=== PATIENT | male | born 1960 | race Hispanic/Latino ===

== ENCOUNTER 2017-05-28 21:09 | Inpatient (IN) | payer SELFPAY ==
--- NOTE | 2017-05-28 22:13 | RAD ---
PA AND LATERAL CHEST: 05/28/17 HISTORY: Cough and congestion. Heart size is enlarged. There is increased parenchymal lung markings as compared to a 08/01/15 study. M ore in the perihilar distribution, but asymmetric and more confluent in the left mid lung field. Alt nikolai these changes could be indication of edema, they are more suggestive of pneumonic type changes. IMPRESSION: Cardiomegaly with bilateral pneumonia. POS: [facility]
[2017-05-28 22:51] LABS: #Monocytes 0.5 thou/uL (0.11-0.59); #Neutrophils 9.7 thou/uL (1.40-6.50); %Basophils 0.3 % (0.0-1.0); %Lymphocytes 9.2 % (21.0-51.0); %Neutrophils 86.4 % (42.0-75.0); Hemoglobin 16.8 g/dL (14.0-18.0); Mean Corpuscular HGB CONC 33.6 g/dL (32.0-36.0); Mean Corpuscular Hemoglobin 30.8 pg (27.0-31.0); Mean Corpuscular Volume 91.7 fl (80.0-94.0); Mean Platelet Volume 8.8 fL (7.4-10.4); Platelet Count 164 thou/uL (130-400); RBC Distribution Width 10.5 % (11.5-14.5); Red Blood Cell (RBC) Count 5.45 mill/uL (4.70-6.10); White Blood Cell (WBC) Count 11.3 thou/uL (4.8-10.8)
[2017-05-28 23:06] LABS: ALT (SGPT) 60 U/L (8-55); AST (SGOT) 111 U/L (5-34); Albumin 3.5 g/dL (3.5-5.0); Alkaline Phosphatase 73 U/L (40-150); Anion Gap 17 mmol/L (10-20); BUN (Urea Nitrogen) 21 mg/dL (8.4-25.7); Bilirubin, Total 0.7 mg/dL (0.2-1.2); Calc. Creatinine Clearance 0 mL/min (70-130); Carbon Dioxide 21 mmol/L (22-29); Chloride 100 mmol/L (98-107); Estimated GFR-MDRD 71; Globulin 4.5 g/dL (2.4-3.5); Glucose 203 mg/dL (70-105); Potassium 3.9 mmol/L (3.5-5.1); Sodium 134 mmol/L (136-145)
[2017-05-28 23:08] LABS: CKMB 2.9 ng/mL (0-6.6); Troponin I 0.021 ng/mL (< 0.028)
[2017-05-28] MEDS ORDERED: cefTRIAXone\\ROCEPHIN 1 GM VIAL ONE (23:18)
[2017-05-28] MEDS ORDERED: Sodium Chloride 0.9% 0 ML ONE (23:34)
[2017-05-28] MEDS ORDERED: Azithromycin 500 MG VIAL ONE (23:34)
[2017-05-29] MEDS ORDERED: Acetaminophen 325 MG TAB PO PRN (01:14)
[2017-05-29] MEDS ORDERED: Ondansetron ODT 4 MG TAB SL PRN (01:14)
[2017-05-29] MEDS ORDERED: Ondansetron HCl/PF 4 MG/2 ML Vial IVP PRN (01:14)
[2017-05-29] MEDS ORDERED: FLU VACC QS2017-18 36 mo. & older 0.5 ML SYRINGE IM ONE (09:00)
[2017-05-29] MEDS ORDERED: Dextrose 5% in Water 1,000 ML IV PRN (10:41)
[2017-05-29] MEDS ORDERED: Dextrose 50% Abboject 50 ML SYRINGE SLOW IVP PRN (10:41)
[2017-05-29] MEDS ORDERED: CCU Electrolyte Replacement 1 EACH FS ONE (10:41)
[2017-05-29] MEDS ORDERED: Norepinephrine 8 MG/0.9% NS 250 ML IVPB PRN (10:41)
[2017-05-29 11:16] LABS: Actual Bicarbonate (HCO3a) 23.6 mEq/L (22-26); CO2 Tension 32.6 mmHg (35.0-45.0); Calcium, Ionized 1.1 mmol/L (1.12-1.30); Hematocrit-ABG 52.1 % (42.0-52.0); Hemoglobin (Hb) 17.1 g/dL (14.0-18.0); O2 Tension (PaO2) 62.1 mmHg (80.0-100.0); pH, Arterial 7.48 (7.35-7.45)
[2017-05-29 11:19] LABS: Analyzer IN Cardio OR; Puncture Site RRA
[2017-05-29] MEDS: Sodium Chloride 0.9% 1,000 ML IV SCH ×2 (11:40→17:36)
[2017-05-29] MEDS: Acetaminophen 325 MG TAB PO PRN (12:10)
[2017-05-29] MEDS ORDERED: Potassium Phosphate 9 MMOL in Sodium Chloride 0.9% 100 ML IVPB PRN (12:17)
[2017-05-29] MEDS ORDERED: Potassium Chloride 40 MEQ in Sodium Chloride 0.9% 250 ML 250 ML IVPB PRN (12:17)
[2017-05-29] MEDS ORDERED: Potassium Chloride 40 MEQ in Premix Bag 1 BAG IVPB PRN (12:17)
[2017-05-29] MEDS ORDERED: CCU ELECTROLYTE REPLACEMENT PROTOCOL FS PRN (12:17)
[2017-05-29] MEDS ORDERED: Magnesium 2 GM/NS 0.9% 100 ML 2 GM in Premix Bag 1 BAG IVPB PRN (12:17)
[2017-05-29] MEDS ORDERED: Potassium Phosphate 12 MMOL in Sodium Chloride 0.9% 250 ML 250 ML IV PRN (12:17)
[2017-05-29] MEDS ORDERED: Magnesium Oxide 400 MG TAB PO PRN ×2 (12:17)
[2017-05-29] MEDS ORDERED: Potassium Phosphate 15 MMOL in Sodium Chloride 0.9% 250 ML 250 ML IV PRN (12:17)
[2017-05-29] MEDS ORDERED: Potassium Chloride 20 MEQ TAB PO PRN (12:17)
[2017-05-29] MEDS ORDERED: VANCOMYCIN IVPB PRN (12:20)
[2017-05-29 12:31] LABS: Acetaminophen Less than 6.0 mcg/mL (10.0-30.0); Alcohol Less than 10 mg/dL (Less than 10); Salicylate Less than 8.0 mg/dL (15.0-30.0)
--- NOTE | 2017-05-29 13:49 | HP ---
REASON FOR ADMISSION: Pneumonia, sepsis, alcohol abuse. HISTORY OF PRESENTING ILLNESS: The patient gives history of cough with expectoration from the last 2 days. He has been coughing yellowish green sputum. His and other family members have had flu- like symptoms per patient. He did not have any fever at home. Patient has not taken his flu shot. He states he drinks nearly 24 cans of beer on the weekends, but not during weekdays. 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 No complaints of chest pain or palpitations. He has been having hacking cough here in bed 233 on the observation unit. Patient's systolic blood pressures have been in the 80s-90s here. He has r eceived ceftriaxone and Zithromax and one dose of nebulization in the ER. PAST MEDICAL HISTORY AND PAST SURGICAL HISTORY: The patient claims he does not have any medical prob lems. He does not take any medications. ALLERGIES: He is allergic to PENICILLIN. PERSONAL HISTORY: Drinks heavy on the weekends, including 24 beers and states it is only on weekends . Does not abuse drugs or smoke. 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 He stays with his . FAMILY HISTORY: Mom in her 40s. She had a neck mass and it is unclear the exact cause for her . Father is living and is healthy. REVIEW OF SYSTEMS: The following complete review of systems was negative, unless otherwise mentioned in the HPI or below: Constitutional: Weight loss or gain, ability to conduct usual activities. Skin: Rash, itching. Eyes: Double vision, pain. ENT/Mouth: Nose bleeding, neck stiffness, pain, tenderness. Cardiovascular: Palpitations, dyspnea on exertion, orthopnea. Respiratory: Shortness of breath, wheezing, cough, hemoptysis, fever or night sweats. Gastrointestinal: Poor appetite, abdominal pain, heartburn, nausea, vomiting, constipation, or diarr hea. Genitourinary: Urgency, frequency, dysuria, nocturia. Musculoskeletal: Pain, swelling. Neurologic/Psychiatric: Anxiety, depression. Allergy/Immunologic: Skin rash, bleeding tendency. PHYSICAL EXAMINATION: GENERAL: The patient is a 56-year-old male who is currently in moderate respiratory distress. VITAL SIGNS: Blood pressure 86/54 this morning, pulse 78 per minute, respiratory rate 24 per minute, temperature 98.3 degrees Fahrenheit, and saturating 92% on 4 liters nasal cannula. NECK: Supple, no elevated JVD. EYES: Extraocular muscles intact. Pupils reacting to light. ORAL CAVITY: Mucous membranes are dry. There is congestion in the posterior pharynx. No obvious ex udates seen. CARDIOVASCULAR SYSTEM: S1, S2 heard. Regular rhythm. RESPIRATORY SYSTEM: Air entry 1+ bilateral. Scattered rales plus bilateral. Rhonchi plus bilateral . ABDOMEN: Soft, bowel sounds heard. No tenderness, rigidity or guarding. EXTREMITIES: No peripheral edema or calf tenderness. VASCULAR SYSTEM: Peripheral pulses 1+ bilateral. No ischemic ulcerations or gangrene. CENTRAL NERVOUS SYSTEM: No gross focal deficits seen. Patient is alert and oriented well. PSYCHIATRIC SYSTEM: The patient's mood is a bit anxious, otherwise no hallucinations or delusions. LABORATORY DATA AND X-RAY FINDINGS: White count of 11, hemoglobin and hematocrit 16 and 50, platelet count 164 with 86% neutrophils. Sodium 134, serum bicarbonate 21, BUN 21, creatinine 1.0, glucose i s 203, AST 111, ALT 60. BNP is less than 10, albumin is 3.5. Initial nasal swab for influenza A and B antigens are negative. Preliminary blood cultures x2 are negative. Chest x-ray done shows bilate ral pneumonia with cardiomegaly. CLINICAL IMPRESSION AND PLAN: The patient will be admitted to ICU for sepsis with pneumonia. His sy stolic blood pressure has been trending in the 80s-90s. He will be placed on cefepime, Levaquin, and vancomycin. He will be on normal saline at 150 mL per hour. DuoNebs along with Mucinex and Tessalo n for supportive care. We will obtain cortisol level stat and viral PCR as well in view of him being exposed to flu in the family. Patient has a history of binge drinking on the weekends. If patient does not respond to fluid resuscitation, he will be placed on pressors. We will closely watch him fo r withdrawal symptoms from alcohol. I have spoken to Dr. Michaels for pulmonary consultation.
[2017-05-29] MEDS ORDERED: Vancomycin HCl 1 GM in Sodium Chloride 0.9% 250 ML 250 ML IVPB SCH (14:00)
[2017-05-29] MEDS: Cefepime 2 GM, Syringe 2.5 ML in Sterile Water 10 ML SLOW IVP SCH (14:04)
[2017-05-29] MEDS: Benzonatate 100 MG CAP PO SCH ×2 (14:06→21:02)
[2017-05-29] MEDS: HumaLOG 300 UNITS/3 ML VIAL SC PRN (14:35)
--- NOTE | 2017-05-29 16:15 | CON ---
DATE OF CONSULTATION: 05/29/2017 CONSULTING PHYSICIAN: Shirley Gonzalez M.D. REASON FOR CONSULTATION: Pneumonia and low blood pressure. HISTORY OF PRESENT ILLNESS: The patient is a 56-year-old male who was brought to the hospital last n ight with cough, congestion, and flu-like symptoms. Apparently this has been going on for several da ys. He has not been on any antibiotics as outpatient. He says he feels better since receiving some fluids and some antibiotics today. PAST MEDICAL HISTORY: Unremarkable. PAST SURGICAL HISTORY: None. ALLERGIES: PENICILLIN. SOCIAL HISTORY: He drinks 24 beers per weekend, does not smoke. 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 FAMILY MEDICAL HISTORY: Remarkable for some type of cancer. REVIEW OF SYSTEMS: Twelve point review of systems otherwise negative. PHYSICAL EXAMINATION: VITAL SIGNS: Temperature 98.2, pulse 89, O2 sat 100% on room air, respiratory rate mid 20s, blood pr essure 109/68. GENERAL: He is awake and alert, in no distress. HEENT: Unremarkable. NECK: No JVD. CHEST: He has some inspiratory crackles at the bases. CARDIAC: S1, S2 regular. ABDOMEN: Soft, obese, nontender. EXTREMITIES: No clubbing, cyanosis, or edema. LABORATORY DATA: White blood cell count 11.3, hematocrit 50, platelet count 164. Sodium 134, potass ium 3.9, chloride 101, CO2 of 21, BUN 21, creatinine 1.0, glucose 203. Blood gas pH 7.48, pCO2 of 32 , PO2 of 62. Tox screen was negative. His chest x-ray shows bilateral interstitial infiltrates. I reviewed the film personally. Micro rafy t showed no growth to date at this time. ASSESSMENT: Bilateral pneumonia, I think community acquired. PLAN: Reviewed orders, agree with antibiotics. He does not need vasopressors. Continue with IV flu ids. Continue IV steroids. He will not need BiPAP at this time. Things may change in the next 24 h ours and he will be watched closely on telemetry.
[2017-05-29 17:22] LABS: HIV (1/2) Antibody/Antigen Non-Reactive (NonReactive); HIV 1/2 INDEX 0.08 S/CO (<1.00)
[2017-05-29] MEDS: Guaifenesin DM 100-10/5 ML UDCUP PO PRN (18:37)
[2017-05-29] MEDS ORDERED: Cefepime 2 GM in Sodium Chloride 0.9% 100 ML IVPB SCH (21:00)
[2017-05-29] MEDS ORDERED: Famotidine 20 MG TAB PO SCH (21:00)
[2017-05-29] MEDS: guaiFENesin ER 600 MG TAB PO SCH (21:02)
[2017-05-29] MEDS: Famotidine 20 MG TAB PO SCH (21:04)
[2017-05-30 00:18] LABS: Bilirubin Negative (Negative); Blood, Urine Trace (Negative); Clarity CLOUDY (Clear); Glucose, Urine (Dipstick) Negative (Negative); Leukocyte Negative (Negative); Nitrite Negative (Negative); Protein, Urine (Dipstick) 100 mg/dL (Neg-Trace); Specific Gravity, Urine 1.028 (1.002-1.036); Urobilinogen 0.2 mg/dL (0.2-1.0)
[2017-05-30 00:20] LABS: Bacteria/HPF None Seen HPF (None Seen); Pathc Cast-AUWi Flag 1.08 (0-2.49); Squamous Epithelial 0-3 HPF (0-3)
[2017-05-30 00:24] LABS: Amphetamine Not Detected (NotDetected); Barbiturates Screen Not Detected (NotDetected); Benzodiazepine Screen Not Detected (NotDetected); Cocaine Metabolite Screen Not Detected (NotDetected); Medtox Reader # READER 1; Methadone Not Detected (NotDetected); Methamphetamine Not Detected (NotDetected); Opiate Screen Not Detected (NotDetected); Oxycodone Screen Not Detected (NotDetected); Phencyclidine (PCP) Not Detected (NotDetected); THC/Cannabinoid Screen Not Detected (NotDetected); Tricyclic Screen Not Detected (NotDetected)
[2017-05-30 00:25] LABS: Medtox Control Line Valid? VALID (VALID)
[2017-05-30 00:37] LABS: Hyaline Casts/LPF 0-3 HYALINE CAST LPF (0-3 Hyaline); RBC/HPF 0-3 HPF (0-3); Renal Epithelial None Seen HPF (0-3); Transitional Epithelial NONE SEEN HPF (0-3); Yeast-All Forms None Seen HPF (None Seen)
[2017-05-30] MEDS: Cefepime 2 GM, Syringe 2.5 ML in Sterile Water 10 ML SLOW IVP SCH ×2 (01:08→14:07)
[2017-05-30] MEDS: Sodium Chloride 0.9% 1,000 ML IV SCH ×4 (01:08→22:05)
[2017-05-30] MEDS: Vancomycin HCl 1 GM in Premix Bag 1 BAG IVPB SCH ×2 (02:50→14:58)
[2017-05-30 05:36] LABS: Anion Gap 14 mmol/L (10-20); BUN (Urea Nitrogen) 18 mg/dL (8.4-25.7); Calc. Creatinine Clearance 130 mL/min (70-130); Calcium 8.2 mg/dL (7.8-10.44); Carbon Dioxide 22 mmol/L (22-29); Chloride 101 mmol/L (98-107); Estimated GFR-MDRD 81; Glucose 188 mg/dL (70-105); Potassium 3.7 mmol/L (3.5-5.1); Sodium 133 mmol/L (136-145)
[2017-05-30 06:00] LABS: Band 7 % (5-11); Hemoglobin 15.1 g/dL (14.0-18.0); Lymphocytes 9 % (21-51); MDiff Complete? YES; Mean Corpuscular HGB CONC 32.7 g/dL (32.0-36.0); Mean Corpuscular Hemoglobin 31.9 pg (27.0-31.0); Mean Corpuscular Volume 97.6 fl (80.0-94.0); Mean Platelet Volume 9.1 fL (7.4-10.4); Monocytes 8 % (0-10); Neutrophil 71 % (42-75); PLT Morphology Comment Appears Adequate; Platelet Count 167 thou/uL (130-400); RBC Distribution Width 11.9 % (11.5-14.5); RBC Morphology Normal; Reactive Lymphocytes 5 % (0-10); Red Blood Cell (RBC) Count 4.73 mill/uL (4.70-6.10); White Blood Cell (WBC) Count 17.6 thou/uL (4.8-10.8)
[2017-05-30] MEDS ORDERED: Enoxaparin Sodium 40 MG/0.4 ML SYRINGE SC SCH (09:00)
[2017-05-30] MEDS: guaiFENesin ER 600 MG TAB PO SCH ×2 (10:00→22:05)
[2017-05-30] MEDS: Famotidine 20 MG TAB PO SCH ×2 (10:00→22:05)
[2017-05-30] MEDS: Guaifenesin DM 100-10/5 ML UDCUP PO PRN ×2 (10:00→17:54)
[2017-05-30] MEDS: Benzonatate 100 MG CAP PO SCH ×3 (10:05→22:05)
[2017-05-30] MEDS: Enoxaparin Sodium 40 MG/0.4 ML SYRINGE SC SCH (10:06)
--- NOTE | 2017-05-30 11:28 | PDOC.PN ---
- Subjective Encounter Start Date: 05/30/17 Encounter Start Time: 08:30 Subjective: breathing better but still sob and coughing -: no chest pain, is oriented well -: and daughter at bedside - Objective Resuscitation Status: Resuscitation Status FULL:Full Resuscitation MAR Reviewed: Yes Vital Signs & Weight: Vital Signs (12 hours) Temp Pulse Resp BP Pulse Ox 05/30/17 08:13 95 05/30/17 08:10 97.9 F 90 24 H 101/67 86 L 05/30/17 07:23 86 22 H 98 05/30/17 05:20 97.0 F L 89 20 119/77 94 L 05/29/17 23:53 25 H 98 Weight Weight 235 lb 12.8 oz I&O: 05/29/17 05/30/17 05/31/17 06:59 06:59 06:59 Intake Total 240 2730 Output Total 825 Balance 240 1905 Result Diagrams: 05/30/17 05:10 05/30/17 05:10 Additional Labs: Accuchecks 05/30/17 05/29/17 05/29/17 06:20 20:31 11:18 POC Glucose 144 H 156 H 255 H Phys Exam - Physical Examination HEENT: PERRLA, moist MMs Neck: no JVD, supple Respiratory: no rales, wheezing present rhonchi++ Cardiovascular: RRR, no significant murmur Gastrointestinal: soft, non-tender, positive bowel sounds Musculoskeletal: no edema, pulses present Neurological: non-focal, moves all 4 limbs Psychiatric: normal affect, A&O x 3 Dx/Plan (1) PNA (pneumonia) Code(s): J18.9 - PNEUMONIA, UNSPECIFIED ORGANISM Status: Acute Qualifiers: Pneumonia type: due to unspecified organism Laterality: bilateral (2) Sepsis Code(s): A41.9 - SEPSIS, UNSPECIFIED ORGANISM Status: Acute Qualifiers: Sepsis type: sepsis due to unspecified organism Qualified Code(s): A41.9 - Sepsis, unspecified organism (3) Alcohol abuse Code(s): F10.10 - ALCOHOL ABUSE, UNCOMPLICATED Status: Chronic (4) Obesity Code(s): E66.9 - OBESITY, UNSPECIFIED Status: Chronic Qualifiers: Obesity classification: adult class 2 (BMI 35 - 39.9) (5) DM type 2 (diabetes mellitus, type 2) Status: Acute Qualifiers: Diabetes mellitus complication status: with unspecified complications Diabetes mellitus exterminator helper termite insulin use: without exterminator helper termite use Qualified Code( s): E11.8 - Type 2 diabetes mellitus with unspecified complications Comment: new onset - Plan is on cefepime, levaq and vanc, add metformin for dm -: prelim blood cs are -ve, await pcr results -: iv steroids, nebs, reduce iv fluids to 70mls/hr -: spo2 90% room air, sbp around 100 -: keep him on tele for today * . Review of Systems - Medications/Allergies Allergies/Adverse Reactions: Allergies Allergy/AdvReac Type Severity Reaction Status Date / Time No Known Allergies Allergy Verified 05/29/17 01:16 Medications: Current Medications Acetaminophen (Tylenol) 650 mg PO Q4H PRN PRN Reason: Headache/Fever or Pain Last Admin: 05/29/17 12:10 Dose: 650 mg Albuterol/Ipratropium (Duoneb) 3 ml NEB [id number] [facility] Last Admin: 05/30/17 07:23 Dose: 3 ml Benzonatate (Tessalon) 100 mg PO TID [facility] Last Admin: 05/30/17 10:05 Dose: 100 mg Dextrose/Water (Dextrose 50%) 25 gm SLOW IVP PRN PRN PRN Reason: Hypoglycemia Enoxaparin Sodium (Lovenox) 40 mg SC 0900 [facility] Last Admin: 05/30/17 10:01 Dose: 40 mg Enoxaparin Sodium (Lovenox) 40 mg SC 0900 [facility] Last Admin: 05/30/17 10:06 Dose: Not Given Famotidine (Pepcid) 20 mg PO BID [facility] Last Admin: 05/30/17 10:00 Dose: 20 mg Glucagon (Glucagon) 1 mg IM PRN PRN PRN Reason: Hypoglycemia Guaifenesin (Mucinex) 600 mg PO Q12HR [facility] Last Admin: 05/30/17 10:00 Dose: 600 mg Guaifenesin/Dextromethorphan (Robitussin Dm) 15 ml PO Q4H PRN PRN Reason: Cough Last Admin: 05/30/17 10:00 Dose: 15 ml Dextrose/Water (D5w) 1,000 mls @ 0 mls/hr IV .Q0M PRN; As Directed PRN Reason: Hypoglycemia Levofloxacin 750 mg/ Device 150 mls @ 100 mls/hr IVPB 1200 [facility] Last Admin: 05/29/17 12:10 Dose: 150 mls Sodium Chloride (Normal Saline 0.9%) 1,000 mls @ 150 mls/hr IV .Q6H40M [facility] Last Admin: 05/30/17 05:20 Dose: 1,000 mls Cefepime HCl 2 gm/ Syringe 2.5 (ml/ Sterile Water) 12.5 mls @ 150 mls/hr SLOW IVP 0100,1300 [facility] Last Admin: 05/30/17 01:08 Dose: 12.5 mls Potassium Chloride 40 meq/ (Sodium Chloride) 270 mls @ 135 mls/hr IVPB ASDIR PRN PRN Reason: FOR SERUM K+ 2.5 - 3.5 Potassium Chloride 40 meq/ (Device) 100 mls @ 50 mls/hr IVPB ASDIR PRN PRN Reason: FOR SERUM K+ 2.5 - 3.5 Magnesium Sulfate 1 gm/ Sodium (Chloride) 102 mls @ 102 mls/hr IV PRN PRN PRN Reason: MAG LEVEL 1.4 - 2.0 Magnesium Sulfate 2 gm/ Device 100 mls @ 100 mls/hr IVPB ASDIR PRN PRN Reason: MAGNESIUM < 1.4 Potassium Phosphate 9 mmol/ (Sodium Chloride) 103 mls @ 25.75 mls/hr IVPB ASDIR PRN PRN Reason: Phosphate 1.0-1.8 Potassium Phosphate 12 mmol/ (Sodium Chloride) 254 mls @ 63.5 mls/hr IV ASDIR PRN PRN Reason: Serum phosphate 0.5-0.9 Potassium Phosphate 15 mmol/ (Sodium Chloride) 255 mls @ 63.75 mls/hr IV ASDIR PRN PRN Reason: Serum Phos < 0.5 Vancomycin HCl 1 gm/ Device 200 mls @ 200 mls/hr IVPB 0200,1400 [facility] Last Admin: 05/30/17 02:50 Dose: 200 mls Insulin Human Lispro (Humalog) 0 units SC .MODERATE SLIDING SC PRN PRN Reason: Moderate Correctional Scale Last Admin: 05/29/17 14:35 Dose: 6 unit Magnesium Oxide (Magnesium Oxide) 400 mg PO BIDPRN PRN PRN Reason: FOR SERUM MAG 1.4 - 2.0 Magnesium Oxide (Magnesium Oxide) 800 mg PO PRN PRN PRN Reason: FOR SERUM MAG < 1.4 Metformin HCl (Glucophage) 500 mg PO BID-WM LONNIE Methylprednisolone Sodium Succinate (Solu-Medrol) 20 mg IVP Q8HR LONNIE Last Admin: 05/30/17 05:20 Dose: 20 mg Miscellaneous Medication (Phos-Nak) 1 pkt PO TIDPRN PRN PRN Reason: FOR PHOS LEVEL 1.0 - 1.8 Miscellaneous Medication (Phos-Nak) 2 pkt PO TIDPRN PRN PRN Reason: FOR PHOS LEVEL 0.5 - 1.0 Miscellaneous Medication (Pharmacy To Dose) 0 each IVPB DAILYPRN PRN PRN Reason: LABS Ccu Electrolyte (Replacement Protocol) 0 each FS PRN PRN PRN Reason: FOR ELECTROLYTE REPLACEMENT Potassium Chloride (K-Dur) 40 meq PO ASDIR PRN PRN Reason: FOR SERUM K+ 2.5 - 3.5 Potassium Chloride (Klor-Con) 40 meq PER TUBE ASDIR PRN PRN Reason: FOR SERUM K+ 2.5-3.5
--- NOTE | 2017-05-30 13:04 | PRG ---
DATE OF SERVICE: 05/30/2017 SUBJECTIVE: He says he feels okay. He was in no distress. PHYSICAL EXAMINATION: VITAL SIGNS: Temperature 97.9, pulse 90, respiration 24, O2 sat 95% on 3 liters, blood pressure 101/ 67. HEENT: Unremarkable. NECK: No JVD. LUNGS: Diffuse crackles. CARDIAC: S1 and S2 regular. ABDOMEN: Soft. EXTREMITIES: No edema. LABORATORY DATA: White blood cell count 17.6, hematocrit 46.1, platelet count 167. Sodium 133, pota ssium 3.7, chloride 101, CO2 20, BUN 18, creatinine 0.9, glucose 188. Cultures show no growth to tiffani e. ASSESSMENT: 1. Bilateral pneumonia - community acquired. 2. Diabetes mellitus. 3. Alcohol abuse. PLAN: 1. Continue antibiotics. 2. Continue steroids and oxygen. 3. Hopefully transition to oral antibiotics by tomorrow.
[2017-05-30] MEDS: HumaLOG 300 UNITS/3 ML VIAL SC PRN (17:01)
[2017-05-30] MEDS: metFORMIN 500 MG TAB PO SCH (17:20)
[2017-05-30 20:26] LABS: Actual Bicarbonate (HCO3a) 21.8 mEq/L (22-26); Base Excess (BEa) -1.4 mEq/L (0 (+/-) 2.5); CO2 Tension 32.8 mmHg (35.0-45.0); Calcium, Ionized 1.1 mmol/L (1.12-1.30); Hematocrit-ABG 50.5 % (42.0-52.0); Hemoglobin (Hb) 16.2 g/dL (14.0-18.0); pH, Arterial 7.44 (7.35-7.45)
[2017-05-30 20:31] LABS: Analyzer IN Cardio OR; O2 Tension (PaO2) 49.3 mmHg (80.0-100.0); Puncture Site L RADIAL
--- NOTE | 2017-05-30 20:56 | RAD ---
AP VIEW OF THE CHEST 05/30/17 INDICATION: Shortness of breath. COMPARISON: Prior exam dated 05/20/17. FINDINGS: The parenchymal opacities involving the right perihilar region have increased. The left perihilar op acifications appear slightly improved from the comparison. Findings may reflect changes of airway davon ma or pneumonia. No definite pleural effusion or pneumothorax is evident. Cardiomegaly persists. Osse ous structures are unchanged. IMPRESSION: Fluctuating perihilar densities may reflect fluctuating airspace edema. A pneumonia could also have a similar appearance. POS: [facility]
--- NOTE | 2017-05-30 21:33 | PDOC.EVN ---
Event Note - Event Note Event Note: called by RN for spo2 dropping down to 80% on 2 litres nasal canula and 86% on 50% ventimask. ABG, stat cxr. Stop iv fluids. Transfer pt to [facility] for bipap. Continue all other meds.
[2017-05-31] MEDS: Cefepime 2 GM, Syringe 2.5 ML in Sterile Water 10 ML SLOW IVP SCH ×2 (00:50→13:24)
[2017-05-31] MEDS: Vancomycin HCl 1 GM in Premix Bag 1 BAG IVPB SCH (01:30)
[2017-05-31 01:36] LABS: Vancomycin, Trough 6.9 ug/mL
[2017-05-31] MEDS ORDERED: Vancomycin HCl 500 MG in Sodium Chloride 0.9% 100 ML IVPB SCH ×4 (02:45)
[2017-05-31 04:37] LABS: Band 7 % (5-11); Hemoglobin 14.9 g/dL (14.0-18.0); Lymphocytes 10 % (21-51); MDiff Complete? YES; Mean Corpuscular HGB CONC 33.3 g/dL (32.0-36.0); Mean Corpuscular Hemoglobin 32.8 pg (27.0-31.0); Mean Corpuscular Volume 98.4 fl (80.0-94.0); Mean Platelet Volume 9.5 fL (7.4-10.4); Neutrophil 83 % (42-75); PLT Morphology Comment Appears Adequate; Platelet Count 169 thou/uL (130-400); RBC Distribution Width 11.9 % (11.5-14.5); Red Blood Cell (RBC) Count 4.56 mill/uL (4.70-6.10); White Blood Cell (WBC) Count 17.5 thou/uL (4.8-10.8)
[2017-05-31 04:51] LABS: Anion Gap 12 mmol/L (10-20); BUN (Urea Nitrogen) 18 mg/dL (8.4-25.7); Calc. Creatinine Clearance 162 mL/min (70-130); Calcium 8.4 mg/dL (7.8-10.44); Carbon Dioxide 25 mmol/L (22-29); Chloride 105 mmol/L (98-107); Estimated GFR-MDRD Greater than 90; Glucose 202 mg/dL (70-105); Potassium 4.1 mmol/L (3.5-5.1); Sodium 138 mmol/L (136-145)
[2017-05-31] MEDS: HumaLOG 300 UNITS/3 ML VIAL SC PRN (05:38)
--- NOTE | 2017-05-31 09:06 | PDOC.PN ---
- Subjective Encounter Start Date: 05/31/17 Encounter Start Time: 09:04 Mr. Hilario was seen today in follow-up of pneumonia. He says he is breathing a little better with BiPAP. He denies any chest pain. He is still coughing. - Objective Resuscitation Status: Resuscitation Status FULL:Full Resuscitation MAR Reviewed: Yes Vital Signs & Weight: Vital Signs (12 hours) Temp Pulse Resp BP BP Pulse Ox 05/31/17 08:39 68 41 H 99 05/31/17 08:38 68 41 H 99 05/31/17 08:23 98.5 F 56 L 17 114/81 99 05/31/17 07:47 98.3 F 66 30 H 98 05/31/17 04:42 98.3 F 66 22 H 129/83 99 05/31/17 02:45 98.3 F 63 33 H 116/83 100 05/31/17 00:17 81 43 H 100 05/31/17 00:00 98.7 F 76 34 H 114/83 100 05/30/17 22:00 82 37 H 136/95 H 97 05/30/17 21:54 72 100 05/30/17 21:30 99.3 F 88 37 H 99 05/30/17 21:15 99.3 F 88 36 H 146/102 H 99 Weight Weight 235 lb 1 oz I&O: 05/30/17 05/31/17 06/01/17 06:59 06:59 06:59 Intake Total 2730 3605 Output Total 825 2080 Balance 1905 1525 Result Diagrams: 05/31/17 03:48 05/31/17 03:48 Additional Labs: Accuchecks 05/31/17 05/30/17 05/30/17 05:12 21:07 16:41 POC Glucose 193 H 188 H 198 H 05/30/17 11:38 POC Glucose 166 H Phys Exam - Physical Examination HEENT: PERRLA Respiratory: wheezing present + scattered wheezing and rales at both bases Cardiovascular: RRR, no significant murmur Gastrointestinal: soft, non-tender, positive bowel sounds Musculoskeletal: no edema Dx/Plan (1) Pneumonia, community acquired Code(s): J18.9 - PNEUMONIA, UNSPECIFIED ORGANISM Status: Acute (2) Acute respiratory distress Code(s): R06.03 - ACUTE RESPIRATORY DISTRESS Status: Acute (3) DM type 2 (diabetes mellitus, type 2) Status: Chronic Qualifiers: Diabetes mellitus complication status: with unspecified complications Diabetes mellitus senior care insulin use: without emt intermediate use Qualified Code( s): E11.8 - Type 2 diabetes mellitus with unspecified complications Comment: new onset (4) Sepsis Code(s): A41.9 - SEPSIS, UNSPECIFIED ORGANISM Status: Acute Qualifiers: Sepsis type: sepsis due to unspecified organism Qualified Code(s): A41.9 - Sepsis, unspecified organism (5) Alcohol abuse Code(s): F10.10 - ALCOHOL ABUSE, UNCOMPLICATED Status: Chronic - Plan * Acute respiratory distress and sepsis from Pneumonia- Continue Vancomycin and Levaquin * Patient was placed on Bipap last night to aid in Oxygenation * Await further recommendation from Schedule Supervisor * DM- blood glucose is stable. * Echo results noted
[2017-05-31] MEDS: Benzonatate 100 MG CAP PO SCH ×3 (09:29→20:01)
[2017-05-31] MEDS: guaiFENesin ER 600 MG TAB PO SCH ×2 (09:29→20:01)
[2017-05-31] MEDS: Famotidine 20 MG TAB PO SCH ×2 (09:29→20:01)
[2017-05-31] MEDS: Enoxaparin Sodium 40 MG/0.4 ML SYRINGE SC SCH (09:30)
[2017-05-31] MEDS: Vancomycin HCl 1.25 GM in Sodium Chloride 0.9% 250 ML 250 ML IVPB SCH ×2 (09:31→18:38)
[2017-05-31] MEDS: metFORMIN 500 MG TAB PO SCH ×2 (09:31→19:36)
[2017-05-31 09:57] LABS: Actual Bicarbonate (HCO3a) 25.7 mEq/L (22-26); CO2 Tension 41.4 mmHg (35.0-45.0); Calcium, Ionized 1.2 mmol/L (1.12-1.30); Hemoglobin (Hb) 15.7 g/dL (14.0-18.0); pH, Arterial 7.41 (7.35-7.45)
[2017-05-31 09:59] LABS: O2 Tension (PaO2) 49.9 mmHg (80.0-100.0); Puncture Site RRA
[2017-05-31] MEDS ORDERED: Lorazepam 2 MG/ML VIAL SLOW IVP PRN (11:25)
[2017-05-31] MEDS ORDERED: Furosemide 40 MG/4 ML VIAL IVP SCH (11:30)
[2017-05-31] MEDS: Oseltamivir 75 MG CAP PO SCH ×2 (12:14→20:01)
--- NOTE | 2017-05-31 13:35 | PRG ---
DATE OF SERVICE: 05/31/2017 Thirty-five minutes critical care time. SUBJECTIVE: It is unknown to me until this morning the patient had been moved to the last night for respiratory distress. He was placed on BiPAP. He apparently has continued to worsen somewhat th is morning in terms of tachypnea. PHYSICAL EXAMINATION: VITAL SIGNS: His temperature is 98.5, pulse 68, respirations 41, O2 sat 99%, blood pressure 114/81. GENERAL: He appears in no distress other than the tachypnea. HEENT: Pupils reactive. Sclerae are anicteric. Oropharynx clear. NECK: No JVD. LUNGS: A few inspiratory crackles bilaterally. CARDIOVASCULAR: S1, S2 regular. ABDOMEN: Soft and nontender. EXTREMITIES: No edema. LABORATORY DATA: Sodium 138, potassium 4.1, chloride 105, CO2 of 25, BUN 18, creatinine 0.7, glucose 202. White blood cell count 17.5, hematocrit 44.9, platelet count 169. Micro showed influenza A. ASSESSMENT: 1. Influenza A with pneumonitis. 2. Acute respiratory failure. 3. Question of concurrent alcohol withdrawal. PLAN: 1. He needs to be moved over to the ICU where he can be watched more closely. He may require intuba tion. We will continue antibiotics, steroids, and nebulization treatments. 2. Try one dose of Lasix. 3. Repeat chest x-ray tomorrow. 4. Add thiamine scheduled.
[2017-06-01] MEDS: Cefepime 2 GM, Syringe 2.5 ML in Sterile Water 10 ML SLOW IVP SCH ×2 (00:59→12:43)
[2017-06-01 01:27] LABS: Vancomycin, Trough 14.5 ug/mL
[2017-06-01] MEDS: Vancomycin HCl 1.25 GM in Sodium Chloride 0.9% 250 ML 250 ML IVPB SCH ×3 (02:34→18:36)
[2017-06-01 05:37] LABS: Anion Gap 12 mmol/L (10-20); BUN (Urea Nitrogen) 23 mg/dL (8.4-25.7); Calc. Creatinine Clearance 154 mL/min (70-130); Calcium 8.6 mg/dL (7.8-10.44); Carbon Dioxide 27 mmol/L (22-29); Chloride 106 mmol/L (98-107); Estimated GFR-MDRD Greater than 90; Glucose 196 mg/dL (70-105); Potassium 3.9 mmol/L (3.5-5.1); Sodium 141 mmol/L (136-145)
[2017-06-01 05:45] LABS: Band 3 % (5-11); Hemoglobin 15.5 g/dL (14.0-18.0); Lymphocytes 13 % (21-51); MDiff Complete? YES; Mean Corpuscular HGB CONC 32.3 g/dL (32.0-36.0); Mean Corpuscular Hemoglobin 32.1 pg (27.0-31.0); Mean Corpuscular Volume 99.2 fl (80.0-94.0); Mean Platelet Volume 9.3 fL (7.4-10.4); Monocytes 4 % (0-10); Neutrophil 80 % (42-75); PLT Morphology Comment Appears Adequate; Platelet Count 225 thou/uL (130-400); RBC Distribution Width 11.8 % (11.5-14.5); Red Blood Cell (RBC) Count 4.82 mill/uL (4.70-6.10); White Blood Cell (WBC) Count 16.8 thou/uL (4.8-10.8)
[2017-06-01] MEDS: HumaLOG 300 UNITS/3 ML VIAL SC PRN ×2 (06:22→17:29)
[2017-06-01] MEDS: Oseltamivir 75 MG CAP PO SCH ×2 (09:27→20:44)
[2017-06-01] MEDS: metFORMIN 500 MG TAB PO SCH ×2 (09:27→17:30)
[2017-06-01] MEDS: guaiFENesin ER 600 MG TAB PO SCH ×2 (09:27→20:44)
[2017-06-01] MEDS: Benzonatate 100 MG CAP PO SCH ×2 (09:29→14:35)
[2017-06-01] MEDS: Famotidine 20 MG TAB PO SCH ×2 (09:29→20:44)
[2017-06-01] MEDS: Enoxaparin Sodium 40 MG/0.4 ML SYRINGE SC SCH (09:30)
--- NOTE | 2017-06-01 11:10 | PDOC.PN ---
- Subjective Encounter Start Date: 06/01/17 Encounter Start Time: 11:08 Mr. Hilario was seen today in follow-up. He does not have any complaints. He appears more comfortable, with less work of breathing. - Objective Resuscitation Status: Resuscitation Status FULL:Full Resuscitation MAR Reviewed: Yes Vital Signs & Weight: Vital Signs (12 hours) Temp Pulse Resp Pulse Ox 06/01/17 08:49 74 36 H 93 L 06/01/17 08:46 73 35 H 93 L 06/01/17 08:00 98.9 F 06/01/17 04:00 98.6 F 06/01/17 00:08 94 24 H 94 L 06/01/17 00:00 98.3 F Weight Weight 235 lb 1 oz Most Recent Monitor Data Heart Rate from ECG 61 NIBP 108/79 NIBP BP-Mean 84 Respiration from ECG 28 SpO2 98 I&O: 05/31/17 06/01/17 06/02/17 06:59 06:59 06:59 Intake Total 3605 620 370 Output Total 2080 1875 500 Balance 1525 -1255 -130 Result Diagrams: 06/01/17 04:27 06/01/17 04:27 Additional Labs: Accuchecks 05/31/17 05/31/17 05/31/17 20:08 16:27 11:11 POC Glucose 180 H 149 H 153 H Phys Exam - Physical Examination HEENT: PERRLA Respiratory: no wheezing + rales at both bases, and rhonchi throughout Cardiovascular: RRR, no significant murmur, no rub Gastrointestinal: soft, non-tender, positive bowel sounds Musculoskeletal: no edema Dx/Plan (1) Pneumonia, community acquired Code(s): J18.9 - PNEUMONIA, UNSPECIFIED ORGANISM Status: Acute (2) Acute respiratory distress Code(s): R06.03 - ACUTE RESPIRATORY DISTRESS Status: Acute (3) DM type 2 (diabetes mellitus, type 2) Status: Chronic Qualifiers: Diabetes mellitus complication status: with unspecified complications Diabetes mellitus fpc insulin use: without fpc use Qualified Code( s): E11.8 - Type 2 diabetes mellitus with unspecified complications Comment: new onset (4) Sepsis Code(s): A41.9 - SEPSIS, UNSPECIFIED ORGANISM Status: Acute Qualifiers: Sepsis type: sepsis due to unspecified organism Qualified Code(s): A41.9 - Sepsis, unspecified organism (5) Alcohol abuse Code(s): F10.10 - ALCOHOL ABUSE, UNCOMPLICATED Status: Chronic - Plan * Pneumonia- due to Influenza A HI- his PCR came back positive- He has been started on Tamiflu yesterday * He is now in the ICU on Bipap * Continue supportive care * Continue Empiric antibiotics * Continue Dounebs and steroids- further recommendations per Account Manager Employee Benefits * DM- blood glucose is stable.
--- NOTE | 2017-06-01 13:52 | RAD ---
PORTABLE CHEST 1 VIEW: DATE: 06/01/17. TIME: 5:15 a.m. HISTORY: Respiratory distress. FINDINGS: The heart is enlarged. There is pulmonary vascular congestion with patchy airspace opacities, worse on the left. No pneumothoraces or large effusions are seen. There are degenerative changes in the s p8ine. POS: [facility]
[2017-06-01] MEDS ORDERED: Furosemide 20 MG/2 ML VIAL SLOW IVP SCH (16:45)
--- NOTE | 2017-06-01 16:54 | PRG ---
DATE OF SERVICE: 06/01/2017 SERVICE: Pulmonary Medicine. INTERVAL HISTORY: The patient is doing really well from a respiratory standpoint. His breathing is much improved through the day. Overnight, refused the BiPAP and this morning, he was in horrendous distress. He got placed back on the BiPAP and did well through the day. He denies any current shortness of breath or chest discomfort. He has no pain in his chest. He is breathing comfortably so long as he keeps the BiPAP on is what he is suggesting. Otherwise, there has been no interval change to his condition. PHYSICAL EXAMINATION: VITAL SIGNS: Afebrile, pulse 83, blood pressure 120/88, respirations 27, saturation 95% on 40% FiO2. GENERAL: The patient is awake and alert. No apparent distress. LUNGS: There is excellent air entry. There is a prolonged expiratory phase. I hear both wheezing and crackles. Crackles are more predominant on the left. HEART: Normal rate and regular. ABDOMEN: Soft, nontender, nondistended. Bowel sounds are positive. MUSCULOSKELETAL: No cyanosis or clubbing. There is trace to 1+ pitting in the bilateral lower extremities. GENITOURINARY: No Enciso catheter in place. NEUROLOGIC: Grossly nonfocal. LABORATORY DATA: WBC 16.8, hemoglobin 15.5, platelets 225,000. A pH 7.41, pCO2 41, pO2 50. Basic metabolic profile this morning was completely unremarkable. Blood sugars ranged from 149-193. Urinalysis is unremarkable. Salicylates, acetaminophen, and alcohol level was negative. Vancomycin trough 14.5. Urine drug screen is unremarkable. HIV 1 and 2 were nonreactive. Respiratory virus profile is positive for influenza A, H1. Blood cultures x2 and urine culture is negative to date. The nasal swab was negative for influenza A and influenza B. IMAGING: Chest x-ray demonstrates pulmonary vascular congestion and patchy airspace opacifications are present bilaterally, but worse on the left. No large effusion is identified. Air bronchograms were also identified. ASSESSMENT: 1. Acute hypoxic respiratory failure. 2. Community-acquired pneumonia secondary to influenza A. 3. Acute bronchitis. 4. Possible alcohol withdrawal. PLAN: We will give him a small dose of Lasix. We will give him Ambien at night on as needed basis. We will keep him on the BiPAP tonight. Tomorrow morning, we will start giving him breaks off of this device. If he tolerates them, we will consider him for transition to the floor. Several adjustments were made to the BiPAP noninvasive ventilator in order to optimize comfort. CRITICAL CARE TIME: 30 minutes. THOMAS
[2017-06-01] MEDS: Zolpidem Tartrate 5 MG TAB PO PRN (20:44)
[2017-06-02] MEDS: Cefepime 2 GM, Syringe 2.5 ML in Sterile Water 10 ML SLOW IVP SCH ×2 (00:50→13:20)
[2017-06-02 01:20] LABS: Vancomycin, Trough 17.2 ug/mL
[2017-06-02] MEDS: Vancomycin HCl 1.25 GM in Sodium Chloride 0.9% 250 ML 250 ML IVPB SCH (02:14)
[2017-06-02] MEDS: metFORMIN 500 MG TAB PO SCH ×2 (08:44→17:15)
[2017-06-02] MEDS: Famotidine 20 MG TAB PO SCH (08:45)
[2017-06-02] MEDS: Oseltamivir 75 MG CAP PO SCH ×2 (08:45→21:15)
[2017-06-02] MEDS: guaiFENesin ER 600 MG TAB PO SCH ×2 (08:45→21:15)
[2017-06-02] MEDS: Enoxaparin Sodium 40 MG/0.4 ML SYRINGE SC SCH (08:45)
--- NOTE | 2017-06-02 16:51 | PDOC.PN ---
- Subjective Encounter Start Date: 06/02/17 Encounter Start Time: 16:49 Patient seen and examined. No new complaints. No overnight events - Objective Resuscitation Status: Resuscitation Status FULL:Full Resuscitation MAR Reviewed: Yes Vital Signs & Weight: Vital Signs (12 hours) Temp Pulse Resp Pulse Ox 06/02/17 15:00 98.3 F 06/02/17 13:51 99 06/02/17 13:48 68 36 H 99 06/02/17 11:00 98.4 F 06/02/17 08:01 62 31 H 95 06/02/17 08:00 97.8 F 62 28 H 98 06/02/17 07:59 67 31 H 96 Weight Weight 235 lb 1 oz Most Recent Monitor Data Heart Rate from ECG 76 NIBP 136/95 NIBP BP-Mean 115 Respiration from ECG 19 SpO2 99 I&O: 06/01/17 06/02/17 06/03/17 06:59 06:59 06:59 Intake Total 620 1900 1050 Output Total 1875 3000 1100 Balance -1255 -1100 -50 Result Diagrams: 06/01/17 04:27 06/01/17 04:27 Additional Labs: Accuchecks 06/02/17 06/02/17 06/02/17 16:19 12:55 05:59 POC Glucose 140 H 137 H 149 H 06/01/17 06/01/17 20:49 17:28 POC Glucose 179 H 177 H Phys Exam - Physical Examination Constitutional: NAD HEENT: PERRLA Neck: no JVD Respiratory: no wheezing coarse bs, some bibasilar rales Cardiovascular: no significant murmur Gastrointestinal: non-tender Musculoskeletal: pulses present Psychiatric: A&O x 3 Dx/Plan (1) Acute respiratory distress Code(s): R06.03 - ACUTE RESPIRATORY DISTRESS Status: Acute (2) PNA (pneumonia) Code(s): J18.9 - PNEUMONIA, UNSPECIFIED ORGANISM Status: Acute Qualifiers: Pneumonia type: due to unspecified organism Laterality: bilateral (3) Sepsis Code(s): A41.9 - SEPSIS, UNSPECIFIED ORGANISM Status: Acute Qualifiers: Sepsis type: sepsis due to unspecified organism Qualified Code(s): A41.9 - Sepsis, unspecified organism (4) Alcohol abuse Code(s): F10.10 - ALCOHOL ABUSE, UNCOMPLICATED Status: Chronic (5) DM type 2 (diabetes mellitus, type 2) Status: Chronic Qualifiers: Diabetes mellitus complication status: with unspecified complications Diabetes mellitus steel pourer helper insulin use: without group home use Qualified Code( s): E11.8 - Type 2 diabetes mellitus with unspecified complications Comment: new onset (6) Obesity Code(s): E66.9 - OBESITY, UNSPECIFIED Status: Chronic Qualifiers: Obesity classification: adult class 2 (BMI 35 - 39.9) - Plan * Pneumonia- due to Influenza A HI- his PCR came back positive- He has been started on Tamiflu yesterday * bipap as needed * Continue supportive care * Continue Empiric antibiotics * Continue Dounebs and steroids- further recommendations per Insulation Nozzleman * DM- blood glucose is stable.
--- NOTE | 2017-06-02 20:57 | PRG ---
DATE OF SERVICE: 06/02/2017 SERVICE: Pulmonary Medicine. INTERVAL HISTORY: The patient has actually done quite well from a respiratory standpoint. He is beverly erating BiPAP breaks better today. He used his CPAP whole last night. Otherwise, there has been no interval change in his condition. He is making slow improvement on a day by day basis. PHYSICAL EXAMINATION: VITAL SIGNS: Afebrile, pulse 69, blood pressure 119/86, respirations 32, saturation 96% on 50% via V entimask. GENERAL: The patient is awake, alert, in no apparent distress. LUNGS: Decent air entry. There are both rhonchi and crackles present. There is prolonged expirator y phase with a little bit of wheezing. HEART: Normal rate, regular. ABDOMEN: Soft, nontender, nondistended. Bowel sounds are positive. MUSCULOSKELETAL: No cyanosis or clubbing. No pitting in the bilateral lower extremities. NEUROLOGIC: Grossly nonfocal. LABORATORY DATA: WBC 16.8 and downtrending, hemoglobin 15.5, platelets 225,000. Neutrophils are 80% with downtrending band count of 3%. Lymphocyte count is responding. Glucose ranges from 154,000 to 179,000. Urinalysis is unremarkable. HIV 1 and 2 are unremarkable. Respiratory virus panel is pos itive for influenza AH1. ASSESSMENT: 1. Acute hypoxic respiratory failure. 2. Community-acquired pneumonia secondary to influenza A. 3. Acute bronchitis. 4. Possible alcohol withdrawal. PLAN: We will continue to diurese the patient gently until we arrived euvolemia. We will continue o ur intermittent BiPAP and take breaks. These will be increased as tolerated but I still want him on at night. As such, he is to remain in the ICU. Hopefully, his lungs are started to open up in the next 24-48 hours. Pulmonary Critical Care will continue to follow.
[2017-06-02] MEDS: Zolpidem Tartrate 5 MG TAB PO PRN (21:15)
[2017-06-03 04:20] LABS: Anion Gap 11 mmol/L (10-20); BUN (Urea Nitrogen) 23 mg/dL (8.4-25.7); Calc. Creatinine Clearance 154 mL/min (70-130); Carbon Dioxide 27 mmol/L (22-29); Chloride 105 mmol/L (98-107); Estimated GFR-MDRD Greater than 90; Glucose 102 mg/dL (70-105); Magnesium 2.2 mg/dL (1.6-2.6); Phosphorus 3.5 mg/dL (2.3-4.7); Potassium 4.3 mmol/L (3.5-5.1); Sodium 139 mmol/L (136-145)
[2017-06-03 05:08] LABS: Hemoglobin 16.2 g/dL (14.0-18.0); Lymphocytes 10 % (21-51); MDiff Complete? YES; Macrocytosis SLIGHT = 6-15 cells (100X) (0-5/hpf); Mean Corpuscular HGB CONC 33.7 g/dL (32.0-36.0); Mean Corpuscular Hemoglobin 33.4 pg (27.0-31.0); Mean Corpuscular Volume 99.3 fl (80.0-94.0); Mean Platelet Volume 8.8 fL (7.4-10.4); Monocytes 3 % (0-10); Neutrophil 87 % (42-75); PLT Morphology Comment Appears Adequate; Platelet Count 297 thou/uL (130-400); RBC Distribution Width 11.7 % (11.5-14.5); Red Blood Cell (RBC) Count 4.85 mill/uL (4.70-6.10); White Blood Cell (WBC) Count 16.5 thou/uL (4.8-10.8)
[2017-06-03] MEDS ORDERED: Furosemide 20 MG/2 ML VIAL SLOW IVP SCH (06:00)
[2017-06-03] MEDS: Enoxaparin Sodium 40 MG/0.4 ML SYRINGE SC SCH (09:16)
[2017-06-03] MEDS: Oseltamivir 75 MG CAP PO SCH ×2 (09:40→21:41)
[2017-06-03] MEDS: guaiFENesin ER 600 MG TAB PO SCH ×2 (09:40→21:40)
[2017-06-03] MEDS: metFORMIN 500 MG TAB PO SCH (09:40)
--- NOTE | 2017-06-03 16:38 | PDOC.PN ---
- Subjective Encounter Start Date: 06/03/17 Encounter Start Time: 16:38 Patient seen and examined. No new complaints. No overnight events - Objective Resuscitation Status: Resuscitation Status FULL:Full Resuscitation MAR Reviewed: Yes Vital Signs & Weight: Vital Signs (12 hours) Temp Pulse Resp Pulse Ox 06/03/17 15:00 99.1 F 06/03/17 12:31 93 L 06/03/17 12:28 81 36 H 94 L 06/03/17 12:00 96 06/03/17 11:00 99.2 F 06/03/17 08:00 99.4 F 98 30 H 97 06/03/17 07:00 99.7 F H 06/03/17 06:54 81 37 H 93 L 06/03/17 06:53 72 35 H 94 L Weight Weight 235 lb 1 oz Most Recent Monitor Data Heart Rate from ECG 68 NIBP 92/63 NIBP BP-Mean 81 Respiration from ECG 35 SpO2 95 I&O: 06/02/17 06/03/17 06/04/17 06:59 06:59 06:59 Intake Total 1900 1330 200 Output Total 3000 2300 1525 Balance -1100 -970 -1325 Result Diagrams: 06/03/17 03:45 06/03/17 03:45 Additional Labs: Accuchecks 06/03/17 06/03/17 06/02/17 16:23 11:14 21:20 POC Glucose 144 H 124 H 160 H Phys Exam - Physical Examination Constitutional: NAD HEENT: PERRLA Neck: no JVD Respiratory: no rales Gastrointestinal: non-tender Musculoskeletal: pulses present Neurological: moves all 4 limbs Dx/Plan (1) Acute respiratory distress Code(s): R06.03 - ACUTE RESPIRATORY DISTRESS Status: Acute (2) PNA (pneumonia) Code(s): J18.9 - PNEUMONIA, UNSPECIFIED ORGANISM Status: Acute Qualifiers: Pneumonia type: due to unspecified organism Laterality: bilateral (3) Sepsis Code(s): A41.9 - SEPSIS, UNSPECIFIED ORGANISM Status: Acute Qualifiers: Sepsis type: sepsis due to unspecified organism Qualified Code(s): A41.9 - Sepsis, unspecified organism (4) Alcohol abuse Code(s): F10.10 - ALCOHOL ABUSE, UNCOMPLICATED Status: Chronic (5) DM type 2 (diabetes mellitus, type 2) Status: Chronic Qualifiers: Diabetes mellitus complication status: with unspecified complications Diabetes mellitus intermediate project manager insulin use: without intermediate project manager use Qualified Code( s): E11.8 - Type 2 diabetes mellitus with unspecified complications Comment: new onset (6) Obesity Code(s): E66.9 - OBESITY, UNSPECIFIED Status: Chronic Qualifiers: Obesity classification: adult class 2 (BMI 35 - 39.9) - Plan * * Pneumonia- due to Influenza A HI- his PCR came back positive- He has been started on Tamiflu yesterday * bipap as needed * Continue supportive care * Continue Empiric antibiotics * Continue Dounebs and steroids- further recommendations per Ring Cutter Lathe Operator * DM- blood glucose is stable.
--- NOTE | 2017-06-03 17:24 | PRG ---
DATE OF SERVICE: 06/03/2017 SERVICE: Pulmonary Medicine. INTERVAL HISTORY: The patient is doing okay from a respiratory standpoint. He was using his BiPAP b asically continuous from last night until this morning. We are going to give him a break. He seems to be getting a little bit more exhausted. He does not have any fevers, chills, nausea or vomiting. Otherwise, there has been no interval change to his condition. He is coughing, but not bringing up any sputum. PHYSICAL EXAMINATION: VITAL SIGNS: Afebrile. Pulse 81, blood pressure 115/97, respirations 36, saturation 94% on nonrebre ather. GENERAL: The patient is awake and alert, in mild respiratory distress. HEART: Normal rate, regular. ABDOMEN: Soft, nontender, nondistended. Bowel sounds are positive. MUSCULOSKELETAL: No cyanosis or clubbing. There is no pitting in the bilateral lower extremities. If anything he is to touch drive. GENITOURINARY: No Enciso. NEUROLOGIC: Grossly nonfocal. LABORATORY DATA: WBC 16.5, hemoglobin 16.2, platelets were 297,000. Neutrophil count is 87% and gen tly up trending. Basic metabolic profile, magnesium and phosphorus were all perfectly normal. Respi ratory virus PCR is positive for influenza A. Blood cultures, urine culture, all otherwise negative to date. ASSESSMENT: 1. Acute hypoxic respiratory failure. 2. Community-acquired pneumonia secondary to influenza A. 3. Acute bronchitis. 4. Alcohol withdrawal, unlikely. PLAN: The patient is currently euvolemic. As such, no more Lasix will be provided. If the patient cannot tolerate his BiPAP breaks any point, we will proceed with intubation. The longer he is depend ent on the BiPAP, more likely we already have a complication, but as long as he is tolerating good br eaks off of this device, we will continue the best supportive care. Tamiflu will be continued.
[2017-06-04 06:20] LABS: Anion Gap 13 mmol/L (10-20); BUN (Urea Nitrogen) 26 mg/dL (8.4-25.7); Calc. Creatinine Clearance 155 mL/min (70-130); Calcium 9.4 mg/dL (7.8-10.44); Carbon Dioxide 25 mmol/L (22-29); Chloride 102 mmol/L (98-107); Estimated GFR-MDRD Greater than 90; Glucose 118 mg/dL (70-105); Potassium 4.2 mmol/L (3.5-5.1); Sodium 136 mmol/L (136-145)
[2017-06-04 06:30] LABS: Band 2 % (5-11); Eosinophils 1 % (0-10); Hemoglobin 17.1 g/dL (14.0-18.0); Lymphocytes 7 % (21-51); MDiff Complete? YES; Mean Corpuscular HGB CONC 32.9 g/dL (32.0-36.0); Mean Corpuscular Hemoglobin 32.7 pg (27.0-31.0); Mean Corpuscular Volume 99.4 fl (80.0-94.0); Monocytes 2 % (0-10); Neutrophil 87 % (42-75); Platelet Count 352 thou/uL (130-400); RBC Distribution Width 11.8 % (11.5-14.5); Reactive Lymphocytes 1 % (0-10); Red Blood Cell (RBC) Count 5.23 mill/uL (4.70-6.10); White Blood Cell (WBC) Count 18.2 thou/uL (4.8-10.8)
[2017-06-04] MEDS: Enoxaparin Sodium 40 MG/0.4 ML SYRINGE SC SCH (08:49)
[2017-06-04] MEDS: Oseltamivir 75 MG CAP PO SCH ×2 (08:50→21:37)
[2017-06-04] MEDS: guaiFENesin ER 600 MG TAB PO SCH ×2 (08:50→21:37)
--- NOTE | 2017-06-04 14:06 | PDOC.PN ---
- Subjective Encounter Start Date: 06/04/17 Encounter Start Time: 14:05 Patient seen and examined. No new complaints. No overnight events - Objective Resuscitation Status: Resuscitation Status FULL:Full Resuscitation MAR Reviewed: Yes Vital Signs & Weight: Vital Signs (12 hours) Temp Pulse Resp Pulse Ox 06/04/17 08:34 93 L 06/04/17 08:31 96 33 H 93 L 06/04/17 08:00 98.2 F 96 33 H 91 L 06/04/17 04:00 98.5 F 06/04/17 02:36 71 31 H 93 L Weight Weight 235 lb 1 oz Most Recent Monitor Data Heart Rate from ECG 72 NIBP 93/71 NIBP BP-Mean 83 Respiration from ECG 33 SpO2 92 I&O: 06/03/17 06/04/17 06/05/17 06:59 06:59 06:59 Intake Total 1330 560 170 Output Total 2300 2475 200 Balance -970 -1915 -30 Result Diagrams: 06/04/17 04:50 06/04/17 04:50 Additional Labs: Accuchecks 06/04/17 06/04/17 06/03/17 11:43 05:07 21:40 POC Glucose 144 H 110 105 06/03/17 16:23 POC Glucose 144 H Phys Exam - Physical Examination Constitutional: NAD HEENT: PERRLA Neck: no JVD Respiratory: no wheezing coarse bs Cardiovascular: no significant murmur Gastrointestinal: non-tender Musculoskeletal: pulses present Neurological: moves all 4 limbs Psychiatric: A&O x 3 Dx/Plan (1) Acute respiratory distress Code(s): R06.03 - ACUTE RESPIRATORY DISTRESS Status: Acute (2) PNA (pneumonia) Code(s): J18.9 - PNEUMONIA, UNSPECIFIED ORGANISM Status: Acute Qualifiers: Pneumonia type: due to unspecified organism Laterality: bilateral (3) Sepsis Code(s): A41.9 - SEPSIS, UNSPECIFIED ORGANISM Status: Acute Qualifiers: Sepsis type: sepsis due to unspecified organism Qualified Code(s): A41.9 - Sepsis, unspecified organism (4) Alcohol abuse Code(s): F10.10 - ALCOHOL ABUSE, UNCOMPLICATED Status: Chronic (5) DM type 2 (diabetes mellitus, type 2) Status: Chronic Qualifiers: Diabetes mellitus complication status: with unspecified complications Diabetes mellitus superintendent marine oil terminal insulin use: without superintendent marine oil terminal use Qualified Code( s): E11.8 - Type 2 diabetes mellitus with unspecified complications Comment: new onset (6) Obesity Code(s): E66.9 - OBESITY, UNSPECIFIED Status: Chronic Qualifiers: Obesity classification: adult class 2 (BMI 35 - 39.9) - Plan * doing better * f/u pulm plan * continue current rx
--- NOTE | 2017-06-04 22:11 | PRG ---
DATE OF SERVICE: 06/04/2017 SERVICE: Pulmonary Medicine. INTERVAL HISTORY: The patient is doing fine from a respiratory standpoint. He has been off of BiPAP all day long. He is breathing very comfortably this afternoon. He tells me that his breathing is m uch improved. He continues to have a cough and a little bit of sputum production, but this is also e asing. Overall, he is very pleased with the way things have gone today and yesterday. PHYSICAL EXAMINATION: VITAL SIGNS: Afebrile, pulse 97, blood pressure 130/71, respirations 16 and saturation 100% on 5 lit ers nasal cannula. GENERAL: The patient is awake and alert. No apparent distress. LUNGS: Decent air entry. There is a prolonged expiratory phase with wheezing and rhonchi. No crack les are appreciated. HEART: Normal rate, regular. ABDOMEN: Soft, nontender and nondistended. Bowel sounds positive. MUSCULOSKELETAL: No cyanosis or clubbing. There is no pitting in the bilateral lower extremities. NEUROLOGIC: Grossly nonfocal. LABORATORY AND IMAGING DATA: WBC 18.2, hemoglobin 17.1 and platelets 352,000. Neutrophil count is e levated at 87%. Basic metabolic profile is unremarkable. BUN is elevated at 26, however. Blood sug ars are ranging from 100-152. Respiratory virus panel is positive for influenza A. ASSESSMENT: 1. Acute hypoxic respiratory failure. 2. Community-acquired pneumonia secondary to influenza. 3. Acute bronchitis. PLAN: The patient is doing fantastic from a breathing standpoint. We will continue to minimize oxyg en as tolerated. He will use BiPAP at night and also on a p.r.n. basis and we will decrease his use of this as he improves. We will continue our Tamiflu for the time being as the patient remains still on a precarious position.
[2017-06-05 05:48] LABS: Anion Gap 12 mmol/L (10-20); BUN (Urea Nitrogen) 27 mg/dL (8.4-25.7); Calc. Creatinine Clearance 155 mL/min (70-130); Calcium 9.3 mg/dL (7.8-10.44); Carbon Dioxide 24 mmol/L (22-29); Chloride 103 mmol/L (98-107); Estimated GFR-MDRD Greater than 90; Glucose 125 mg/dL (70-105); Potassium 4.1 mmol/L (3.5-5.1); Sodium 135 mmol/L (136-145)
[2017-06-05 06:37] LABS: Band 4 % (5-11); Eosinophils 1 % (0-10); Hemoglobin 16.7 g/dL (14.0-18.0); Lymphocytes 9 % (21-51); MDiff Complete? YES; Mean Corpuscular HGB CONC 33.1 g/dL (32.0-36.0); Mean Corpuscular Hemoglobin 32.9 pg (27.0-31.0); Mean Corpuscular Volume 99.4 fl (80.0-94.0); Mean Platelet Volume 8.4 fL (7.4-10.4); Monocytes 3 % (0-10); Neutrophil 83 % (42-75); Platelet Count 404 thou/uL (130-400); RBC Distribution Width 11.6 % (11.5-14.5); Red Blood Cell (RBC) Count 5.08 mill/uL (4.70-6.10); White Blood Cell (WBC) Count 20.2 thou/uL (4.8-10.8)
[2017-06-05 07:56] LABS: Actual Bicarbonate (HCO3a) 25.2 mEq/L (22-26); Base Excess (BEa) 1.5 mEq/L (0 (+/-) 2.5); CO2 Tension 37.2 mmHg (35.0-45.0); Calcium, Ionized 1.3 mmol/L (1.12-1.30); Hematocrit-ABG 55.6 % (42.0-52.0); Hemoglobin (Hb) 17.4 g/dL (14.0-18.0); pH, Arterial 7.45 (7.35-7.45)
[2017-06-05 08:01] LABS: Puncture Site RRA
[2017-06-05] MEDS: guaiFENesin ER 600 MG TAB PO SCH ×2 (08:15→20:32)
[2017-06-05] MEDS: Enoxaparin Sodium 40 MG/0.4 ML SYRINGE SC SCH (08:15)
[2017-06-05] MEDS ORDERED: Furosemide 20 MG/2 ML VIAL SLOW IVP SCH (14:30)
--- NOTE | 2017-06-05 15:11 | PDOC.PN ---
- Subjective Encounter Start Date: 06/05/17 Encounter Start Time: 15:09 Patient seen and examined. No new complaints. No overnight events - Objective Resuscitation Status: Resuscitation Status FULL:Full Resuscitation MAR Reviewed: Yes Vital Signs & Weight: Vital Signs (12 hours) Temp Pulse Resp BP Pulse Ox 06/05/17 13:34 99 06/05/17 13:32 81 24 H 06/05/17 08:00 96.5 F L 91 24 H 88 L 06/05/17 07:30 96.5 F L 91 24 H 127/75 85 L 06/05/17 07:20 83 L 06/05/17 04:57 97.3 F L 74 22 H 136/88 88 L 06/05/17 04:00 88 L Weight Weight 231 lb 8 oz Most Recent Monitor Data Heart Rate from ECG 73 NIBP 94/71 NIBP BP-Mean 83 Respiration from ECG 33 SpO2 94 I&O: 06/04/17 06/05/17 06/06/17 06:59 06:59 06:59 Intake Total 560 1080 Output Total 2475 1015 Balance -1915 65 Result Diagrams: 06/05/17 05:12 06/05/17 05:12 Additional Labs: Accuchecks 06/05/17 06/05/17 06/04/17 10:40 06:40 20:52 POC Glucose 129 H 101 152 H 06/04/17 16:59 POC Glucose 145 H Phys Exam - Physical Examination Constitutional: NAD HEENT: PERRLA Neck: no JVD Respiratory: no rales Cardiovascular: no significant murmur Gastrointestinal: non-tender Musculoskeletal: pulses present Neurological: moves all 4 limbs Psychiatric: A&O x 3 Dx/Plan (1) Acute respiratory distress Code(s): R06.03 - ACUTE RESPIRATORY DISTRESS Status: Acute (2) PNA (pneumonia) Code(s): J18.9 - PNEUMONIA, UNSPECIFIED ORGANISM Status: Acute Qualifiers: Pneumonia type: due to unspecified organism Laterality: bilateral (3) Sepsis Code(s): A41.9 - SEPSIS, UNSPECIFIED ORGANISM Status: Acute Qualifiers: Sepsis type: sepsis due to unspecified organism Qualified Code(s): A41.9 - Sepsis, unspecified organism (4) Alcohol abuse Code(s): F10.10 - ALCOHOL ABUSE, UNCOMPLICATED Status: Chronic (5) DM type 2 (diabetes mellitus, type 2) Status: Chronic Qualifiers: Diabetes mellitus complication status: with unspecified complications Diabetes mellitus intermodal customer service insulin use: without intermodal customer service use Qualified Code( s): E11.8 - Type 2 diabetes mellitus with unspecified complications Comment: new onset (6) Obesity Code(s): E66.9 - OBESITY, UNSPECIFIED Status: Chronic Qualifiers: Obesity classification: adult class 2 (BMI 35 - 39.9) - Plan * doing better * f/u waxer operator plan
--- NOTE | 2017-06-05 15:44 | PRG ---
DATE OF SERVICE: 06/05/2017 SERVICE: Pulmonary Medicine. INTERVAL HISTORY: The patient is doing fine from a respiratory standpoint. Overnight, he did not us e his BiPAP. This morning, he was struggling to breathe. I put back on BiPAP for 2-3 hours and he s tarted settled down quite nicely. We gave him another break prior to lunch. At this point, he denie s any current fevers, chills, nausea, vomiting or chest discomfort. He continues to be short-winded whenever the oxygen falls off. PHYSICAL EXAMINATION: VITAL SIGNS: Afebrile, pulse 81, blood pressure 127/75, respirations 24, saturation 99% on 50% Venti mask. HEENT: Normocephalic, atraumatic. Sclerae are white, conjunctivae pink. Oral and nasal mucosa is m oist without lesions. LUNGS: Rhonchi are present with crackles. There is a prolonged expiratory phase and wheezing. HEART: Normal rate, regular. ABDOMEN: Soft, nontender, nondistended. Bowel sounds are positive. MUSCULOSKELETAL: No cyanosis or clubbing. There is trace pitting in the bilateral lower extremities . NEUROLOGIC: Grossly nonfocal. LABORATORY DATA: WBC 20.2, hemoglobin 16.7, platelets 83,000 with 4% bands. Basic metabolic profile is essentially unremarkable. BUN 27, creatinine 0.8. Bicarbonate 24. Urinalysis is unremarkable. Respiratory virus profile is positive for influenza A. ASSESSMENT: 1. Acute hypoxic respiratory failure. 2. Community-acquired pneumonia secondary to influenza. 3. Acute bronchitis. PLAN: The patient is clinically minimally volume overloaded. We will continue using BiPAP on an as needed basis. We will give him a dose of Lasix right now and also tomorrow morning. He will remain in the IMCU right now. I would like for him to wear his BiPAP at night definitely and during the day time as needed with as much breaks as he can tolerate. At night, he will still need his BiPAP; howev er. We will continue the Tamiflu until he more clearly turns the corner.
[2017-06-05] MEDS: HumaLOG 300 UNITS/3 ML VIAL SC PRN (17:31)
[2017-06-06 05:39] LABS: Anion Gap 13 mmol/L (10-20); BUN (Urea Nitrogen) 27 mg/dL (8.4-25.7); Calc. Creatinine Clearance 148 mL/min (70-130); Calcium 9.8 mg/dL (7.8-10.44); Carbon Dioxide 22 mmol/L (22-29); Chloride 104 mmol/L (98-107); Estimated GFR-MDRD Greater than 90; Glucose 115 mg/dL (70-105); Magnesium 2.3 mg/dL (1.6-2.6); Sodium 135 mmol/L (136-145)
[2017-06-06 06:08] LABS: Band 1 % (5-11); Eosinophils 1 % (0-10); Hemoglobin 17.4 g/dL (14.0-18.0); Lymphocytes 5 % (21-51); MDiff Complete? YES; Mean Corpuscular HGB CONC 32.9 g/dL (32.0-36.0); Mean Corpuscular Hemoglobin 32.7 pg (27.0-31.0); Mean Corpuscular Volume 99.4 fl (80.0-94.0); Mean Platelet Volume 9.5 fL (7.4-10.4); Monocytes 2 % (0-10); Neutrophil 91 % (42-75); Platelet Count 400 thou/uL (130-400); RBC Distribution Width 11.8 % (11.5-14.5); Red Blood Cell (RBC) Count 5.31 mill/uL (4.70-6.10); White Blood Cell (WBC) Count 22.6 thou/uL (4.8-10.8)
[2017-06-06] MEDS: Furosemide 20 MG/2 ML VIAL SLOW IVP SCH (06:40)
[2017-06-06] MEDS: Enoxaparin Sodium 40 MG/0.4 ML SYRINGE SC SCH (09:05)
[2017-06-06] MEDS: guaiFENesin ER 600 MG TAB PO SCH ×2 (09:05→20:26)
--- NOTE | 2017-06-06 11:05 | PDOC.PN ---
- Subjective Encounter Start Date: 06/06/17 Encounter Start Time: 11:04 Patient seen and examined. No new complaints. No overnight events - Objective Resuscitation Status: Resuscitation Status FULL:Full Resuscitation MAR Reviewed: Yes Vital Signs & Weight: Vital Signs (12 hours) Temp Pulse Resp BP BP Pulse Ox 06/06/17 10:57 97 06/06/17 10:56 87 28 H 97 06/06/17 08:00 97.5 F L 88 22 H 95 06/06/17 07:00 97.5 F L 88 22 H 117/74 94 L 06/06/17 04:00 98.7 F 101 H 17 132/76 94 L 06/06/17 00:51 97.8 F 103 H 19 120/79 100 06/06/17 00:14 86 27 H 99 06/06/17 00:13 94 29 H 98 06/05/17 23:37 30 H 98 Weight Weight 116 lb Most Recent Monitor Data Heart Rate from ECG 73 NIBP 94/71 NIBP BP-Mean 83 Respiration from ECG 33 SpO2 94 I&O: 06/05/17 06/06/17 06/07/17 06:59 06:59 06:59 Intake Total 1080 1550 Output Total 1015 2425 Balance 65 -875 Result Diagrams: 06/06/17 04:23 06/06/17 04:23 Additional Labs: Accuchecks 06/06/17 06/05/17 06/05/17 06:12 20:52 16:58 POC Glucose 116 H 142 H 164 H Phys Exam - Physical Examination Constitutional: NAD HEENT: PERRLA Neck: no JVD Respiratory: no wheezing coarse bs Cardiovascular: no significant murmur Gastrointestinal: non-tender Musculoskeletal: pulses present Neurological: moves all 4 limbs Psychiatric: A&O x 3 Dx/Plan (1) Acute respiratory distress Code(s): R06.03 - ACUTE RESPIRATORY DISTRESS Status: Acute (2) PNA (pneumonia) Code(s): J18.9 - PNEUMONIA, UNSPECIFIED ORGANISM Status: Acute Qualifiers: Pneumonia type: due to unspecified organism Laterality: bilateral (3) Sepsis Code(s): A41.9 - SEPSIS, UNSPECIFIED ORGANISM Status: Acute Qualifiers: Sepsis type: sepsis due to unspecified organism Qualified Code(s): A41.9 - Sepsis, unspecified organism (4) Alcohol abuse Code(s): F10.10 - ALCOHOL ABUSE, UNCOMPLICATED Status: Chronic (5) DM type 2 (diabetes mellitus, type 2) Status: Chronic Qualifiers: Diabetes mellitus complication status: with unspecified complications Diabetes mellitus bakery assistant insulin use: without bakery assistant use Qualified Code( s): E11.8 - Type 2 diabetes mellitus with unspecified complications Comment: new onset (6) Obesity Code(s): E66.9 - OBESITY, UNSPECIFIED Status: Chronic Qualifiers: Obesity classification: adult class 2 (BMI 35 - 39.9) - Plan * continue current mx * f/u sap portal developer plan\
[2017-06-06] MEDS ORDERED: Furosemide 20 MG/2 ML VIAL SLOW IVP SCH (16:30)
--- NOTE | 2017-06-06 17:56 | PRG ---
DATE OF SERVICE: 06/06/2017 SERVICE: Pulmonary Medicine. INTERVAL HISTORY: The patient is doing really well this morning. His oxygen requirements are starti ng to improve. This is likely attributed to diuretics. Otherwise, there has been no interval change to his condition. He is breathing much more comfortably. There were no overnight events. PHYSICAL EXAMINATION: VITAL SIGNS: Afebrile, pulse 76, blood pressure 116/83, respirations 24, saturation 99% on 40% FiO2 with 4 liters nasal cannula. GENERAL: Patient is awake, alert, in no apparent distress. LUNGS: Decent air entry. There is no prolonged expiratory phase, wheezing, rhonchi or crackles. Th ere is a prolonged expiratory phase with polyphonic wheezing, but he is moving better air. Crackles are present HEART: Normal rate, regular. ABDOMEN: Soft, nontender, nondistended. Bowel sounds positive. MUSCULOSKELETAL: No cyanosis or clubbing. There is no pitting in the bilateral lower extremities. GENITOURINARY: No Enciso. NEUROLOGIC: Grossly nonfocal. LABORATORY DATA: WBC 22.6, hemoglobin 17.4, platelets 400,000. Basic metabolic profile is otherwise unremarkable. Magnesium is normal. Creatinine 0.83, bicarbonate is low at 22. HIV is nonreactive. Respiratory virus panel is positive for influenza A. ASSESSMENT: 1. Acute hypoxic respiratory failure, starting to improve. 2. Community-acquired pneumonia secondary to influenza. 3. Acute bronchitis, secondary to influenza. 4. Influenza A. 5. Volume overload. PLAN: We will see if the patient can stay off BiPAP tonight. If he is capable of doing this, he can be transitioned to the floor where we can continue to observe him. I will give him an additional do se of Lasix this afternoon. We will continue our daily doses otherwise. Tamiflu will be interrupted as he starting to turn that corner.
[2017-06-06 21:22] LABS: CKMB 0.9 ng/mL (0-6.6); Troponin I Less than 0.010 ng/mL (< 0.028)
--- NOTE | 2017-06-06 21:22 | RAD ---
CHEST ONE VIEW 06/06/17 HISTORY: Chest pain. COMPARISON: Chest one view 06/01/17. FINDINGS: There are multifocal air space opacities, similar to slightly improving. Heart size is upper limits o f normal. No pneumothorax. IMPRESSION: Very slight interval improvement in multifocal air space opacities. POS: [facility]
[2017-06-06] MEDS ORDERED: Ibuprofen 200 MG TAB PO SCH (22:45)
[2017-06-07] MEDS: Furosemide 20 MG/2 ML VIAL SLOW IVP SCH (05:36)
[2017-06-07 06:34] LABS: Anion Gap 12 mmol/L (10-20); BUN (Urea Nitrogen) 28 mg/dL (8.4-25.7); Calc. Creatinine Clearance 137 mL/min (70-130); Calcium 9.4 mg/dL (7.8-10.44); Carbon Dioxide 27 mmol/L (22-29); Chloride 100 mmol/L (98-107); Estimated GFR-MDRD Greater than 90; Glucose 109 mg/dL (70-105); Magnesium 2.2 mg/dL (1.6-2.6); Sodium 135 mmol/L (136-145)
[2017-06-07 06:53] LABS: Eosinophils 1 % (0-10); Hemoglobin 16.5 g/dL (14.0-18.0); Lymphocytes 12 % (21-51); MDiff Complete? YES; Mean Corpuscular HGB CONC 33.2 g/dL (32.0-36.0); Mean Corpuscular Hemoglobin 32.7 pg (27.0-31.0); Mean Corpuscular Volume 98.5 fl (80.0-94.0); Mean Platelet Volume 8.4 fL (7.4-10.4); Monocytes 6 % (0-10); Neutrophil 81 % (42-75); Platelet Count 472 thou/uL (130-400); RBC Distribution Width 11.6 % (11.5-14.5); Red Blood Cell (RBC) Count 5.04 mill/uL (4.70-6.10); White Blood Cell (WBC) Count 23.5 thou/uL (4.8-10.8)
[2017-06-07] MEDS: guaiFENesin ER 600 MG TAB PO SCH ×2 (09:59→21:44)
[2017-06-07] MEDS: Enoxaparin Sodium 40 MG/0.4 ML SYRINGE SC SCH (09:59)
[2017-06-07] MEDS: Acetaminophen 325 MG TAB PO PRN ×2 (13:52→17:36)
--- NOTE | 2017-06-07 16:42 | PRG ---
DATE OF SERVICE: 06/07/2017 SERVICE: Pulmonary Medicine. INTERVAL HISTORY: The patient is doing really well from a cardiovascular and respiratory standpoint. He is breathing comfortably. He went all the way off his BiPAP today. He is actually on 31% FIO2 and saturating at 98 percentile range. Otherwise, he does not have any events overnight. There were no fevers. He is tolerating p.o. He is being much more active. PHYSICAL EXAMINATION: VITAL SIGNS: Afebrile, pulse 108, blood pressure 109/79, respirations 24, saturation 98% on 31% FiO2 . GENERAL: The patient is awake and alert. No apparent distress. LUNGS: Much improved air entry. No crackles are present any longer. HEART: Normal rate, regular. ABDOMEN: Soft, nontender, nondistended. Bowel sounds are positive. MUSCULOSKELETAL: No cyanosis or clubbing. There is trace pitting in the bilateral lower extremities . NEUROLOGIC: Grossly nonfocal. LABORATORY DATA: WBC 23.5, hemoglobin 16.5 and stable, platelets 472,000. Neutrophil count is start ing to drop now. Basic metabolic profile is unremarkable. Magnesium is also normal. Potassium 4.0. Respiratory virus profile is positive for influenza A. All other culture results remain negative. IMAGING: Chest x-ray demonstrates slight interval improvement in the multifocal airspace opacities. Heart size is at the upper limits of normal. ASSESSMENT: 1. Acute hypoxic respiratory failure. 2. Community-acquired pneumonia secondary to influenza. 3. Acute bronchitis secondary to influenza. 4. Influenza A. 5. Volume overload. PLAN: I will give him an additional dose of Lasix right now. We will continue the BiPAP to be used on a p.r.n. basis. Pulmonary Critical Care will continue to follow while he remains in this location . I would like him here for an additional 24-48 hours until he no longer requires the facemask.
--- NOTE | 2017-06-07 17:13 | PDOC.PN ---
- Subjective Encounter Start Date: 06/07/17 Encounter Start Time: 17:12 Patient seen and examined. No new complaints. No overnight events - Objective Resuscitation Status: Resuscitation Status FULL:Full Resuscitation MAR Reviewed: Yes Vital Signs & Weight: Vital Signs (12 hours) Temp Pulse Resp BP BP Pulse Ox 06/07/17 15:32 98.2 F 108 H 24 H 109/79 90 L 06/07/17 11:49 103 H 25 H 93 L 06/07/17 11:00 98.6 F 108 H 24 H 120/92 H 95 06/07/17 08:00 98.5 F 105 H 24 H 110/83 94 L 06/07/17 07:28 92 L 06/07/17 07:25 96 25 H 92 L Weight Weight 209 lb 4.8 oz Most Recent Monitor Data Heart Rate from ECG 73 NIBP 94/71 NIBP BP-Mean 83 Respiration from ECG 33 SpO2 94 I&O: 06/06/17 06/07/17 06/08/17 06:59 06:59 06:59 Intake Total 1550 1000 Output Total 2425 500 Balance -875 500 Result Diagrams: 06/07/17 05:45 06/07/17 05:45 Additional Labs: Accuchecks 06/07/17 06/07/17 06/06/17 10:50 05:43 21:57 POC Glucose 154 H 97 132 H 06/06/17 06/06/17 16:35 10:42 POC Glucose 161 H 146 H Phys Exam - Physical Examination Constitutional: NAD HEENT: PERRLA Neck: no nodes Respiratory: no wheezing, no rhonchi Cardiovascular: no significant murmur Gastrointestinal: non-tender Musculoskeletal: pulses present Neurological: normal sensation Psychiatric: A&O x 3 Dx/Plan (1) Acute respiratory distress Code(s): R06.03 - ACUTE RESPIRATORY DISTRESS Status: Acute (2) PNA (pneumonia) Code(s): J18.9 - PNEUMONIA, UNSPECIFIED ORGANISM Status: Acute Qualifiers: Pneumonia type: due to unspecified organism Laterality: bilateral (3) Sepsis Code(s): A41.9 - SEPSIS, UNSPECIFIED ORGANISM Status: Acute Qualifiers: Sepsis type: sepsis due to unspecified organism Qualified Code(s): A41.9 - Sepsis, unspecified organism (4) Alcohol abuse Code(s): F10.10 - ALCOHOL ABUSE, UNCOMPLICATED Status: Chronic (5) DM type 2 (diabetes mellitus, type 2) Status: Chronic Qualifiers: Diabetes mellitus complication status: with unspecified complications Diabetes mellitus skilled nursing insulin use: without skilled nursing use Qualified Code( s): E11.8 - Type 2 diabetes mellitus with unspecified complications Comment: new onset (6) Obesity Code(s): E66.9 - OBESITY, UNSPECIFIED Status: Chronic Qualifiers: Obesity classification: adult class 2 (BMI 35 - 39.9) - Plan * cont current mx * pulmonary input appreciated * iv lasix
[2017-06-07] MEDS: HumaLOG 300 UNITS/3 ML VIAL SC PRN (17:36)
[2017-06-08] MEDS: Furosemide 20 MG/2 ML VIAL SLOW IVP SCH (06:19)
[2017-06-08] MEDS: guaiFENesin ER 600 MG TAB PO SCH ×2 (08:37→20:18)
[2017-06-08] MEDS: predniSONE 20 MG TAB PO SCH (08:37)
[2017-06-08] MEDS: Enoxaparin Sodium 40 MG/0.4 ML SYRINGE SC SCH (08:37)
[2017-06-08] MEDS: HumaLOG 300 UNITS/3 ML VIAL SC PRN (16:33)
--- NOTE | 2017-06-08 18:57 | PDOC.PN ---
- Subjective Encounter Start Date: 06/08/17 Encounter Start Time: 18:56 Patient seen and examined. No new complaints. No overnight events - Objective Resuscitation Status: Resuscitation Status FULL:Full Resuscitation MAR Reviewed: Yes Vital Signs & Weight: Vital Signs (12 hours) Temp Pulse Resp BP BP BP Pulse Ox 06/08/17 18:47 117 H 20 98 06/08/17 16:00 98.1 F 92 20 100/82 98 06/08/17 13:10 89 32 H 98 06/08/17 11:22 97.7 F 110 H 20 112/97 H 91 L 06/08/17 08:16 97 06/08/17 08:14 89 28 H 97 06/08/17 08:00 97.4 F L 89 28 H 93 L 06/08/17 07:37 97.4 F L 88 24 H 101/78 93 L Weight Weight 209 lb 4.8 oz Most Recent Monitor Data Heart Rate from ECG 73 NIBP 94/71 NIBP BP-Mean 83 Respiration from ECG 33 SpO2 94 I&O: 06/07/17 06/08/17 06/09/17 06:59 06:59 06:59 Intake Total 1000 175 240 Output Total 500 200 Balance 500 -25 240 Result Diagrams: 06/07/17 05:45 06/07/17 05:45 Additional Labs: Accuchecks 06/08/17 06/08/17 06/08/17 15:55 10:43 05:21 POC Glucose 215 H 188 H 104 06/07/17 20:14 POC Glucose 192 H Phys Exam - Physical Examination Constitutional: NAD HEENT: PERRLA Neck: no JVD coarse bs Cardiovascular: no significant murmur Gastrointestinal: non-tender Musculoskeletal: pulses present Neurological: moves all 4 limbs Psychiatric: A&O x 3 Dx/Plan (1) Acute respiratory distress Code(s): R06.03 - ACUTE RESPIRATORY DISTRESS Status: Acute (2) PNA (pneumonia) Code(s): J18.9 - PNEUMONIA, UNSPECIFIED ORGANISM Status: Acute Qualifiers: Pneumonia type: due to unspecified organism Laterality: bilateral (3) Sepsis Code(s): A41.9 - SEPSIS, UNSPECIFIED ORGANISM Status: Acute Qualifiers: Sepsis type: sepsis due to unspecified organism Qualified Code(s): A41.9 - Sepsis, unspecified organism (4) Alcohol abuse Code(s): F10.10 - ALCOHOL ABUSE, UNCOMPLICATED Status: Chronic (5) DM type 2 (diabetes mellitus, type 2) Status: Chronic Qualifiers: Diabetes mellitus complication status: with unspecified complications Diabetes mellitus senior care insulin use: without buttermilk drier operator use Qualified Code( s): E11.8 - Type 2 diabetes mellitus with unspecified complications Comment: new onset (6) Obesity Code(s): E66.9 - OBESITY, UNSPECIFIED Status: Chronic Qualifiers: Obesity classification: adult class 2 (BMI 35 - 39.9) - Plan * doing better * continue current plan * pulm input appreciated
[2017-06-09] MEDS: Furosemide 20 MG/2 ML VIAL SLOW IVP SCH (05:36)
[2017-06-09] MEDS: Enoxaparin Sodium 40 MG/0.4 ML SYRINGE SC SCH (08:16)
[2017-06-09] MEDS: predniSONE 20 MG TAB PO SCH (08:16)
[2017-06-09] MEDS: guaiFENesin ER 600 MG TAB PO SCH ×2 (08:16→21:34)
[2017-06-09 08:31] VITALS: BMI 33.2
--- NOTE | 2017-06-09 15:22 | PRG ---
DATE OF SERVICE: 06/09/2017 SERVICE: Pulmonary Medicine. INTERVAL HISTORY: The patient is doing fine from a respiratory standpoint. His oxygen requirements are actually decreasing. He is now on a ventimask that is running at about 30% on top of his 4 liter s nasal cannula. Otherwise, there has been no interval change to his condition. PHYSICAL EXAMINATION: VITAL SIGNS: Afebrile. Pulse 89, blood pressure 112/97, respirations 32, saturation 98% on these se ttings. HEENT: Normocephalic, atraumatic. Sclerae are white, conjunctivae pink. Oral and nasal mucosa mois t without lesions. LUNGS: Decent air entry. Crackles are present bilaterally. HEART: Normal rate and regular. ABDOMEN: Soft, nontender, nondistended. Bowel sounds are positive. MUSCULOSKELETAL: No cyanosis or clubbing. No pitting in the bilateral lower extremities. NEUROLOGIC: Grossly nonfocal. ASSESSMENT: 1. Acute hypoxic respiratory failure. 2. Community acquired pneumonia secondary to influenza, improving. 3. Acute bronchitis secondary to influenza A. 4. Volume overload. PLAN: I will continue her daily dose of Lasix. I will see if the patient can go without BiPAP over the next 24 hours. If he remains stable by tomorrow morning and his oxygen requirements continue to improve, he can be transitioned to the floor. Pulmonary or Critical Care will continue to follow.
--- NOTE | 2017-06-09 15:45 | PRG ---
DATE OF SERVICE: 06/09/2017 SERVICE: Pulmonary Medicine. INTERVAL HISTORY: The patient is doing really well from respiratory standpoint. He has been weaned down to 3 liters nasal cannula. He is no longer requiring the addition of facemask. Otherwise, ther e has been no interval change to his condition. He denies having any fevers, chills or overnight gio nts. He is much more active today. He is up walking with physical therapy yesterday. PHYSICAL EXAMINATION: VITAL SIGNS: Afebrile, pulse 89, blood pressure 123/84, respirations 30, saturation 99% on 3 liters nasal cannula. GENERAL: Patient is awake, alert, in no apparent distress. LUNGS: Excellent air entry. Dependent crackles are minimal today. HEART: Normal rate, regular. ABDOMEN: Soft, nontender, nondistended. Bowel sounds are positive. MUSCULOSKELETAL: No cyanosis or clubbing. No pitting in the bilateral lower extremities. NEUROLOGIC: Grossly nonfocal. ASSESSMENT: 1. Acute hypoxic respiratory failure. 2. Community-acquired pneumonia. 3. Acute bronchitis. 4. Influenza a. 5. Volume overload, resolving. PLAN: We will continue our current medications. He can be transitioned to the floor. We will wean oxygen as tolerated. We will increase exercise as much as the patient can handle. Ultimately, once he is off oxygen. He is stable for transition home. He will need an outpatient evaluation for obstr uctive sleep apnea and COPD. I would like to postpone this for a couple of weeks until after he is o ut of the hospital.
[2017-06-09] MEDS: HumaLOG 300 UNITS/3 ML VIAL SC PRN (17:42)
--- NOTE | 2017-06-09 18:05 | PDOC.PN ---
- Subjective Encounter Start Date: 06/09/17 Encounter Start Time: 18:03 Patient seen and examined. No new complaints. No overnight events - Objective Resuscitation Status: Resuscitation Status FULL:Full Resuscitation MAR Reviewed: Yes Vital Signs & Weight: Vital Signs (12 hours) Temp Pulse Resp BP Pulse Ox 06/09/17 16:52 97.5 F L 100 18 93/72 99 06/09/17 13:45 89 30 H 99 06/09/17 12:00 97 06/09/17 11:00 97.2 F L 84 18 123/84 97 06/09/17 08:25 98 06/09/17 08:23 84 32 H 98 06/09/17 08:00 97.2 F L 90 18 98 06/09/17 07:21 97.2 F L 90 18 98/71 93 L Weight Admit Weight 235 lb 12.8 oz Weight 199 lb 12.8 oz Most Recent Monitor Data Heart Rate from ECG 73 NIBP 94/71 NIBP BP-Mean 83 Respiration from ECG 33 SpO2 94 I&O: 06/08/17 06/09/17 06/10/17 06:59 06:59 06:59 Intake Total 175 1520 960 Output Total 200 1575 425 Balance -25 -55 535 Result Diagrams: 06/07/17 05:45 06/07/17 05:45 Additional Labs: Accuchecks 06/09/17 06/09/17 06/09/17 16:42 10:41 05:34 POC Glucose 176 H 158 H 108 06/08/17 20:21 POC Glucose 181 H Phys Exam - Physical Examination Constitutional: NAD HEENT: PERRLA Neck: no JVD coarse bs Cardiovascular: no significant murmur Gastrointestinal: non-tender Musculoskeletal: pulses present Neurological: moves all 4 limbs Psychiatric: A&O x 3 Dx/Plan (1) Acute respiratory distress Code(s): R06.03 - ACUTE RESPIRATORY DISTRESS Status: Acute (2) PNA (pneumonia) Code(s): J18.9 - PNEUMONIA, UNSPECIFIED ORGANISM Status: Acute Qualifiers: Pneumonia type: due to unspecified organism Laterality: bilateral (3) Sepsis Code(s): A41.9 - SEPSIS, UNSPECIFIED ORGANISM Status: Acute Qualifiers: Sepsis type: sepsis due to unspecified organism Qualified Code(s): A41.9 - Sepsis, unspecified organism (4) Alcohol abuse Code(s): F10.10 - ALCOHOL ABUSE, UNCOMPLICATED Status: Chronic (5) DM type 2 (diabetes mellitus, type 2) Status: Chronic Qualifiers: Diabetes mellitus complication status: with unspecified complications Diabetes mellitus truck terminal manager insulin use: without truck terminal manager use Qualified Code( s): E11.8 - Type 2 diabetes mellitus with unspecified complications Comment: new onset (6) Obesity Code(s): E66.9 - OBESITY, UNSPECIFIED Status: Chronic Qualifiers: Obesity classification: adult class 2 (BMI 35 - 39.9) - Plan * d/g to floor * wean o2 * pt/ot * pulm input appreciated
[2017-06-10 05:20] LABS: Anion Gap 12 mmol/L (10-20); BUN (Urea Nitrogen) 22 mg/dL (8.4-25.7); Calc. Creatinine Clearance 141 mL/min (70-130); Calcium 9.6 mg/dL (7.8-10.44); Carbon Dioxide 29 mmol/L (22-29); Chloride 97 mmol/L (98-107); Estimated GFR-MDRD Greater than 90; Glucose 113 mg/dL (70-105); Magnesium 2.3 mg/dL (1.6-2.6); Sodium 134 mmol/L (136-145)
[2017-06-10] MEDS: Furosemide 20 MG/2 ML VIAL SLOW IVP SCH (06:14)
[2017-06-10] MEDS: guaiFENesin ER 600 MG TAB PO SCH ×2 (09:45→20:00)
[2017-06-10] MEDS: Enoxaparin Sodium 40 MG/0.4 ML SYRINGE SC SCH (09:45)
[2017-06-10] MEDS: predniSONE 20 MG TAB PO SCH (09:45)
--- NOTE | 2017-06-10 13:43 | PDOC.PN ---
- Subjective Encounter Start Date: 06/10/17 Encounter Start Time: 10:00 Pt seen for followup re: pneumonia. Feels better. - Objective Resuscitation Status: Resuscitation Status FULL:Full Resuscitation MAR Reviewed: Yes Vital Signs & Weight: Vital Signs (12 hours) Temp Pulse Resp BP BP Pulse Ox 06/10/17 11:00 97.9 F 90 20 128/86 100 06/10/17 08:00 98.4 F 90 20 96 06/10/17 07:54 98.4 F 90 20 119/80 98 06/10/17 07:52 105 H 32 H 94 L 06/10/17 04:00 97.9 F 72 16 129/79 98 Weight Admit Weight 235 lb 12.8 oz Weight 199 lb 12.8 oz Most Recent Monitor Data Heart Rate from ECG 73 NIBP 94/71 NIBP BP-Mean 83 Respiration from ECG 33 SpO2 94 I&O: 06/09/17 06/10/17 06/11/17 06:59 06:59 06:59 Intake Total 1520 1480 Output Total 1575 785 Balance -55 695 Result Diagrams: 06/07/17 05:45 06/10/17 04:31 Additional Labs: Accuchecks 06/10/17 06/10/17 06/09/17 10:29 06:20 20:32 POC Glucose 143 H 147 H 182 H 06/09/17 16:42 POC Glucose 176 H EKG Reviewed by me: Yes (Tele: sinus tachycardia) Phys Exam - Physical Examination Obese HEENT: moist MMs Neck: supple Respiratory: wheezing present Cardiovascular: RRR S1, S2, reg, tachy Neurological: moves all 4 limbs Psychiatric: normal affect Dx/Plan (1) Pneumonia, community acquired Code(s): J18.9 - PNEUMONIA, UNSPECIFIED ORGANISM Status: Acute (2) Alcohol abuse Code(s): F10.10 - ALCOHOL ABUSE, UNCOMPLICATED Status: Chronic (3) DM type 2 (diabetes mellitus, type 2) Status: Chronic Qualifiers: Diabetes mellitus complication status: with unspecified complications Diabetes mellitus machine long goods helper insulin use: without custodial use Qualified Code( s): E11.8 - Type 2 diabetes mellitus with unspecified complications Comment: new onset (4) Obesity Code(s): E66.9 - OBESITY, UNSPECIFIED Status: Chronic Qualifiers: Obesity classification: adult class 2 (BMI 35 - 39.9) - Plan continue antibiotics, PT/OT, out of bed/ambulate * . Continue oxygen, steroids, bronchodilators, antibiotics. Pt awaiting bed on medical floor. Continue diuretics. Review of Systems - Review of Systems Respiratory: Cough, Dry. negative: Shortness of Breath, Hemoptysis, SOB with Excertion, Pleuritic Pain, Sputum, Wheezing Cardiovascular: negative: chest pain, palpitations, orthopnea, paroxysmal nocturnal dyspnea, edema, light headedness - Medications/Allergies Allergies/Adverse Reactions: Allergies Allergy/AdvReac Type Severity Reaction Status Date / Time Penicillins Allergy Verified 06/02/17 16:04 Medications: Current Medications Acetaminophen (Tylenol) 650 mg PO Q4H PRN PRN Reason: Headache/Fever or Pain Last Admin: 06/07/17 17:36 Dose: 650 mg Albuterol/Ipratropium (Duoneb) 3 ml NEB [id number] [facility] Last Admin: 06/10/17 07:52 Dose: 3 ml Dextrose/Water (Dextrose 50%) 25 gm SLOW IVP PRN PRN PRN Reason: Hypoglycemia Enoxaparin Sodium (Lovenox) 40 mg SC 0900 [facility] Last Admin: 06/10/17 09:45 Dose: 40 mg Furosemide (Lasix) 20 mg SLOW IVP 0600 [facility] Last Admin: 06/10/17 06:14 Dose: 20 mg Glucagon (Glucagon) 1 mg IM PRN PRN PRN Reason: Hypoglycemia Guaifenesin (Mucinex) 600 mg PO Q12HR [facility] Last Admin: 06/10/17 09:45 Dose: 600 mg Dextrose/Water (D5w) 1,000 mls @ 0 mls/hr IV .Q0M PRN; As Directed PRN Reason: Hypoglycemia Insulin Human Lispro (Humalog) 0 units SC .MODERATE SLIDING SC PRN PRN Reason: Moderate Correctional Scale Last Admin: 06/09/17 17:42 Dose: 2 unit Ccu Electrolyte (Replacement Protocol) 0 each FS PRN PRN PRN Reason: FOR ELECTROLYTE REPLACEMENT Potassium Chloride (K-Dur) 40 meq PO ASDIR PRN PRN Reason: FOR SERUM K+ 2.5 - 3.5 Prednisone (Prednisone) 40 mg PO QAM-[facility] Stop: 06/11/17 08:01 Last Admin: 06/10/17 09:45 Dose: 40 mg Zolpidem Tartrate (Ambien) 5 mg PO HSPRN PRN PRN Reason: Insomnia Last Admin: 06/02/17 21:15 Dose: 5 mg
--- NOTE | 2017-06-10 15:12 | PRG ---
DATE OF SERVICE: 06/10/2017 SUBJECTIVE: The patient is doing better, no acute complaints. OBJECTIVE: VITAL SIGNS: Temperature 97.9, pulse 104, respirations 20, O2 sat 100% on 4 liters, blood pressure 1 20/86. HEENT: Unremarkable. NECK: No JVD. LUNGS: A few inspiratory crackles at the bases. CARDIAC: S1 and S2 regular. ABDOMEN: Soft. EXTREMITIES: No edema. ASSESSMENT: 1. Status post influenza with pneumonia. 2. Alcohol abuse. PLAN: The patient is being moved up to the medical floor. We will increase activity. Hopefully, he can go home in the next day or two if he is able to wean down the oxygen.
[2017-06-11] MEDS: Ondansetron HCl/PF 4 MG/2 ML Vial IVP PRN (01:30)
[2017-06-11 04:53] LABS: Anion Gap 13 mmol/L (10-20); BUN (Urea Nitrogen) 24 mg/dL (8.4-25.7); Calc. Creatinine Clearance 137 mL/min (70-130); Calcium 9.6 mg/dL (7.8-10.44); Carbon Dioxide 29 mmol/L (22-29); Chloride 95 mmol/L (98-107); Estimated GFR-MDRD Greater than 90; Glucose 116 mg/dL (70-105); Magnesium 2.4 mg/dL (1.6-2.6); Potassium 4.1 mmol/L (3.5-5.1); Sodium 133 mmol/L (136-145)
[2017-06-11] MEDS: Furosemide 20 MG/2 ML VIAL SLOW IVP SCH (05:50)
[2017-06-11] MEDS: Enoxaparin Sodium 40 MG/0.4 ML SYRINGE SC SCH (08:04)
[2017-06-11] MEDS: predniSONE 20 MG TAB PO SCH (08:05)
[2017-06-11] MEDS: guaiFENesin ER 600 MG TAB PO SCH ×2 (08:05→19:44)
--- NOTE | 2017-06-11 10:50 | PRG ---
DATE OF SERVICE: 06/11/2017 SUBJECTIVE: The patient feels better, had no acute complaints. OBJECTIVE: VITAL SIGNS: Temperature 98.3, pulse 83, respiration 24, saturations 91% on 4 liters, blood pressure 102/69. HEENT: Unremarkable. NECK: No JVD. CHEST: Few crackles bilaterally. CARDIAC: S1, S2 regular. ABDOMEN: Soft. EXTREMITIES: No edema. LABORATORY DATA: Sodium 133, potassium 4.1, chloride 95, CO2 29, BUN 24, creatinine 0.7, glucose 116 . ASSESSMENT: 1. Status post respiratory failure related to influenza pneumonia. 2. Alcohol abuse. PLAN: Wean oxygen as tolerated, needs to increase activity. Hopefully, he can move towards discharg e to rehab soon.
[2017-06-11] MEDS: HumaLOG 300 UNITS/3 ML VIAL SC PRN ×2 (12:04→17:32)
--- NOTE | 2017-06-11 14:32 | PDOC.PN ---
- Subjective Encounter Start Date: 06/11/17 Encounter Start Time: 08:20 Pt seen for followup re: pneumonia. - Objective Resuscitation Status: Resuscitation Status FULL:Full Resuscitation MAR Reviewed: Yes Vital Signs & Weight: Vital Signs (12 hours) Temp Pulse Resp BP Pulse Ox 06/11/17 12:00 98.5 F 83 22 H 118/85 92 L 06/11/17 08:00 98.1 F 83 24 H 102/69 91 L 06/11/17 07:03 88 18 95 Weight Admit Weight 235 lb 12.8 oz Weight 199 lb 12.8 oz Most Recent Monitor Data Heart Rate from ECG 73 NIBP 94/71 NIBP BP-Mean 83 Respiration from ECG 33 SpO2 94 I&O: 06/10/17 06/11/17 06/12/17 06:59 06:59 06:59 Intake Total 1480 810 100 Output Total 785 450 Balance 695 360 100 Result Diagrams: 06/07/17 05:45 06/11/17 04:09 Additional Labs: Accuchecks 06/11/17 06/11/17 06/10/17 11:40 05:07 20:04 POC Glucose 182 H 104 219 H 06/10/17 16:00 POC Glucose 199 H Phys Exam - Physical Examination Obese HEENT: moist MMs Neck: supple Respiratory: no rales, no rhonchi, wheezing present Cardiovascular: RRR Gastrointestinal: soft Neurological: moves all 4 limbs Psychiatric: normal affect Dx/Plan (1) Pneumonia, community acquired Code(s): J18.9 - PNEUMONIA, UNSPECIFIED ORGANISM Status: Acute (2) Influenza A Code(s): J10.1 - FLU DUE TO OTH IDENT INFLUENZA VIRUS W OTH RESP MANIFEST Status: Acute (3) Alcohol abuse Code(s): F10.10 - ALCOHOL ABUSE, UNCOMPLICATED Status: Chronic (4) DM type 2 (diabetes mellitus, type 2) Status: Chronic Qualifiers: Diabetes mellitus complication status: with unspecified complications Diabetes mellitus snf insulin use: without rat exterminator use Qualified Code( s): E11.8 - Type 2 diabetes mellitus with unspecified complications Comment: new onset (5) Obesity Code(s): E66.9 - OBESITY, UNSPECIFIED Status: Chronic Qualifiers: Obesity classification: adult class 2 (BMI 35 - 39.9) - Plan PT/OT, out of bed/ambulate, DVT proph w/lovenox * . Pt still needing supplemental oxygen. Continue steroids. Mobilize patient. Review of Systems - Review of Systems Respiratory: Cough, Shortness of Breath, SOB with Excertion. negative: Dry, Hemoptysis, Pleuritic Pain, Sputum, Wheezing Cardiovascular: negative: chest pain, palpitations, orthopnea, paroxysmal nocturnal dyspnea, edema, light headedness - Medications/Allergies Allergies/Adverse Reactions: Allergies Allergy/AdvReac Type Severity Reaction Status Date / Time Penicillins Allergy Verified 06/02/17 16:04 Medications: Current Medications Acetaminophen (Tylenol) 650 mg PO Q4H PRN PRN Reason: Headache/Fever or Pain Last Admin: 06/07/17 17:36 Dose: 650 mg Albuterol/Ipratropium (Duoneb) 3 ml NEB [id number] [facility] Last Admin: 06/11/17 07:03 Dose: 3 ml Dextrose/Water (Dextrose 50%) 25 gm SLOW IVP PRN PRN PRN Reason: Hypoglycemia Enoxaparin Sodium (Lovenox) 40 mg SC 0900 [facility] Last Admin: 06/11/17 08:04 Dose: 40 mg Furosemide (Lasix) 20 mg SLOW IVP 0600 [facility] Last Admin: 06/11/17 05:50 Dose: 20 mg Glucagon (Glucagon) 1 mg IM PRN PRN PRN Reason: Hypoglycemia Guaifenesin (Mucinex) 600 mg PO Q12HR [facility] Last Admin: 06/11/17 08:05 Dose: 600 mg Dextrose/Water (D5w) 1,000 mls @ 0 mls/hr IV .Q0M PRN; As Directed PRN Reason: Hypoglycemia Insulin Human Lispro (Humalog) 0 units SC .MODERATE SLIDING SC PRN PRN Reason: Moderate Correctional Scale Last Admin: 06/11/17 12:04 Dose: 2 unit Ccu Electrolyte (Replacement Protocol) 0 each FS PRN PRN PRN Reason: FOR ELECTROLYTE REPLACEMENT Ondansetron HCl (Zofran) 4 mg IVP Q6H PRN PRN Reason: Nausea/Vomiting Last Admin: 06/11/17 01:30 Dose: 4 mg Potassium Chloride (K-Dur) 40 meq PO ASDIR PRN PRN Reason: FOR SERUM K+ 2.5 - 3.5 Zolpidem Tartrate (Ambien) 5 mg PO HSPRN PRN PRN Reason: Insomnia Last Admin: 06/02/17 21:15 Dose: 5 mg
[2017-06-11] MEDS ORDERED: Sodium Chloride 0.9% 500 ML IVPB SCH (17:30)
[2017-06-12] MEDS: Furosemide 20 MG/2 ML VIAL SLOW IVP SCH (05:20)
[2017-06-12 05:49] LABS: Anion Gap 10 mmol/L (10-20); BUN (Urea Nitrogen) 23 mg/dL (8.4-25.7); Calc. Creatinine Clearance 134 mL/min (70-130); Calcium 9.2 mg/dL (7.8-10.44); Carbon Dioxide 31 mmol/L (22-29); Chloride 96 mmol/L (98-107); Estimated GFR-MDRD Greater than 90; Glucose 105 mg/dL (70-105); Magnesium 2.1 mg/dL (1.6-2.6); Potassium 3.6 mmol/L (3.5-5.1); Sodium 133 mmol/L (136-145)
[2017-06-12] MEDS: Enoxaparin Sodium 40 MG/0.4 ML SYRINGE SC SCH (07:59)
[2017-06-12] MEDS: guaiFENesin ER 600 MG TAB PO SCH ×2 (07:59→20:38)
--- NOTE | 2017-06-12 09:28 | PRG ---
DATE OF SERVICE: 06/12/2017 SUBJECTIVE: He feels better, he had no acute complaints. PHYSICAL EXAMINATION: VITAL SIGNS: O2 sat is 97% on 3 liters, temperature 97.5, pulse 115, respirations 32, blood pressure 114/82. HEENT: Unremarkable. NECK: No JVD. LUNGS: A few crackles in both bases. CARDIAC: S1 and S2 regular. ABDOMEN: Soft. EXTREMITIES: No edema. LABORATORY DATA: Sodium 133, potassium 3.6, chloride 96, CO2 31, BUN 23, creatinine 0.7, glucose 105 . ASSESSMENT: 1. Status post prolonged noninvasive mechanical ventilation for respiratory failure related to influ nadeem pneumonia. 2. Alcohol abuse. PLAN: Main issue at this time is his hypoxemia. I have instructed the nurse to continue to try to w joaquim his oxygen today. I would anticipate him being in the hospital for another day or two.
--- NOTE | 2017-06-12 10:34 | PDOC.PN ---
- Subjective Encounter Start Date: 06/12/17 Encounter Start Time: 10:25 Feels better. On o2 via N/C - Objective Resuscitation Status: Resuscitation Status FULL:Full Resuscitation MAR Reviewed: Yes Vital Signs & Weight: Vital Signs (12 hours) Temp Pulse Resp BP BP Pulse Ox 06/12/17 08:00 97.5 F L 115 H 32 H 06/12/17 07:50 97.5 F L 115 H 32 H 114/82 85 L 06/12/17 07:00 81 16 96 06/12/17 05:21 97.9 F 76 20 107/73 96 06/12/17 00:04 98 Weight Admit Weight 235 lb 12.8 oz Weight 199 lb 12.8 oz Most Recent Monitor Data Heart Rate from ECG 73 NIBP 94/71 NIBP BP-Mean 83 Respiration from ECG 33 SpO2 94 I&O: 06/11/17 06/12/17 06/13/17 06:59 06:59 06:59 Intake Total 810 730 Output Total 450 Balance 360 730 Result Diagrams: 06/07/17 05:45 06/12/17 05:12 Additional Labs: Accuchecks 06/12/17 06/11/17 06/11/17 05:20 21:48 16:28 POC Glucose 101 182 H 177 H 06/11/17 11:40 POC Glucose 182 H Radiology Reviewed by me: Yes Phys Exam - Physical Examination HEENT: sclera anicteric Neck: no JVD Respiratory: no rhonchi Cardiovascular: RRR Gastrointestinal: soft Musculoskeletal: no edema Neurological: moves all 4 limbs Psychiatric: A&O x 3 Dx/Plan (1) Influenza A Code(s): J10.1 - FLU DUE TO OTH IDENT INFLUENZA VIRUS W OTH RESP MANIFEST Status: Acute (2) PNA (pneumonia) Code(s): J18.9 - PNEUMONIA, UNSPECIFIED ORGANISM Status: Acute Qualifiers: Pneumonia type: due to unspecified organism Laterality: bilateral (3) Alcohol abuse Code(s): F10.10 - ALCOHOL ABUSE, UNCOMPLICATED Status: Chronic (4) DM type 2 (diabetes mellitus, type 2) Status: Chronic Qualifiers: Diabetes mellitus complication status: with unspecified complications Diabetes mellitus long term care phlebotomist insulin use: without fdc use Qualified Code( s): E11.8 - Type 2 diabetes mellitus with unspecified complications Comment: new onset, BS satisfactory. (5) Obesity Code(s): E66.9 - OBESITY, UNSPECIFIED Status: Chronic Qualifiers: Obesity classification: adult class 2 (BMI 35 - 39.9) - Plan Still hypoxic , on O2 via N/C -: Continue current therapy. -: f/u with pulmonary. * .
[2017-06-12] MEDS: HumaLOG 300 UNITS/3 ML VIAL SC PRN (12:56)
[2017-06-13 05:09] LABS: Band 5 % (5-11); Hemoglobin 15.2 g/dL (14.0-18.0); Lymphocytes 10 % (21-51); MDiff Complete? YES; Mean Corpuscular HGB CONC 33.4 g/dL (32.0-36.0); Mean Corpuscular Hemoglobin 32.8 pg (27.0-31.0); Mean Platelet Volume 8.3 fL (7.4-10.4); Monocytes 3 % (0-10); Neutrophil 82 % (42-75); PLT Morphology Comment Appears Adequate; Platelet Count 382 thou/uL (130-400); RBC Distribution Width 11.8 % (11.5-14.5); RBC Morphology Normal; Red Blood Cell (RBC) Count 4.65 mill/uL (4.70-6.10); White Blood Cell (WBC) Count 20.3 thou/uL (4.8-10.8)
[2017-06-13 05:13] LABS: Anion Gap 10 mmol/L (10-20); BUN (Urea Nitrogen) 17 mg/dL (8.4-25.7); Calc. Creatinine Clearance 139 mL/min (70-130); Carbon Dioxide 31 mmol/L (22-29); Chloride 96 mmol/L (98-107); Estimated GFR-MDRD Greater than 90; Glucose 111 mg/dL (70-105); Magnesium 2.3 mg/dL (1.6-2.6); Potassium 3.6 mmol/L (3.5-5.1); Sodium 133 mmol/L (136-145)
[2017-06-13] MEDS: Furosemide 20 MG/2 ML VIAL SLOW IVP SCH (06:17)
--- NOTE | 2017-06-13 08:26 | PDOC.PN ---
- Subjective Encounter Start Date: 06/13/17 Encounter Start Time: 08:05 Feels better,. On O2 via N/C. - Objective Resuscitation Status: Resuscitation Status FULL:Full Resuscitation Vital Signs & Weight: Vital Signs (12 hours) Temp Pulse Resp BP Pulse Ox 06/13/17 07:42 84 16 06/13/17 07:40 94 L 06/13/17 06:00 112/72 06/13/17 01:10 16 06/12/17 21:49 97.5 F L 92 22 H 94 L Weight Admit Weight 235 lb 12.8 oz Weight 199 lb 12.8 oz Most Recent Monitor Data Heart Rate from ECG 73 NIBP 94/71 NIBP BP-Mean 83 Respiration from ECG 33 SpO2 94 I&O: 06/12/17 06/13/17 06/14/17 06:59 06:59 06:59 Intake Total 730 30 Balance 730 30 Result Diagrams: 06/13/17 04:40 06/13/17 04:40 Additional Labs: Accuchecks 06/13/17 06/12/17 06/12/17 05:02 20:00 16:18 POC Glucose 104 170 H 110 06/12/17 12:45 POC Glucose 212 H Radiology Reviewed by me: Yes Phys Exam - Physical Examination Constitutional: NAD HEENT: sclera anicteric Neck: no JVD Respiratory: no rales (+diffuse rhonchi.) Cardiovascular: RRR Gastrointestinal: soft Musculoskeletal: no edema Psychiatric: A&O x 3 Dx/Plan (1) Influenza A Code(s): J10.1 - FLU DUE TO OTH IDENT INFLUENZA VIRUS W OTH RESP MANIFEST Status: Acute (2) PNA (pneumonia) Code(s): J18.9 - PNEUMONIA, UNSPECIFIED ORGANISM Status: Acute Qualifiers: Pneumonia type: due to influenza A virus Laterality: bilateral Plan: Repeat chest x-ray. (3) Alcohol abuse Code(s): F10.10 - ALCOHOL ABUSE, UNCOMPLICATED Status: Chronic (4) DM type 2 (diabetes mellitus, type 2) Status: Chronic Qualifiers: Diabetes mellitus complication status: with unspecified complications Diabetes mellitus intermediate insulin use: without intermodal owner operator truck driver use Qualified Code( s): E11.8 - Type 2 diabetes mellitus with unspecified complications Comment: new onset, BS satisfactory. (5) Obesity Code(s): E66.9 - OBESITY, UNSPECIFIED Status: Chronic Qualifiers: Obesity classification: adult class 2 (BMI 35 - 39.9) - Plan -: Continue current therapy -: f/u with pulmonary. -: Repeat chest x-ray. * .
[2017-06-13] MEDS: Enoxaparin Sodium 40 MG/0.4 ML SYRINGE SC SCH (08:50)
[2017-06-13] MEDS: guaiFENesin ER 600 MG TAB PO SCH ×2 (08:50→20:09)
--- NOTE | 2017-06-13 09:15 | RAD ---
UPRIGHT PORTABLE CHEST 1 VIEW: Date: 06/13/17 HISTORY: 56-year-old male, follow-up pneumonia. COMPARISON: 06/06/17. FINDINGS: There are persistent bilateral interstitial and alveolar opacities throughout both lungs. These paren chymal changes appear more marked in the mid lung zones than on the prior study. Bilateral costophren ic angle blunting. IMPRESSION: Progressive alveolar and interstitial opacities bilaterally, particularly in the mid lung zones, with some bilateral small pleural effusions, showing worsening parenchymal changes from the prior 8 study. POS: [facility]
--- NOTE | 2017-06-13 14:00 | PRG ---
DATE OF SERVICE: 06/13/2017 SUBJECTIVE: This morning, he is walking. He is still short of breath, cough. His x-ray still shows bilateral infiltrates. OBJECTIVE: VITAL SIGNS: Sats are 90% on 1 liter, respiratory rate 18, temperature 97, blood pressure 90/62. CHEST: Chest reveals bilateral crackles. CARDIAC: Normal S1, S2. No gallops. ABDOMEN: Soft. LABORATORY DATA: White count 10,000, H&H 15 and 46. Platelet count 382. IMPRESSION: 1. Bilateral pulmonary infiltrates. 2. Influenza with pneumonia. Continue neb treatments, Lasix. Supportive care.
[2017-06-14 04:46] LABS: Anion Gap 11 mmol/L (10-20); BUN (Urea Nitrogen) 13 mg/dL (8.4-25.7); Calc. Creatinine Clearance 143 mL/min (70-130); Carbon Dioxide 29 mmol/L (22-29); Chloride 96 mmol/L (98-107); Estimated GFR-MDRD Greater than 90; Glucose 127 mg/dL (70-105); Magnesium 2.3 mg/dL (1.6-2.6); Potassium 3.6 mmol/L (3.5-5.1); Sodium 132 mmol/L (136-145)
[2017-06-14] MEDS: Furosemide 20 MG/2 ML VIAL SLOW IVP SCH (06:03)
[2017-06-14] MEDS ORDERED: Sodium Chloride 0.65% Nasal 44 ML BOT EA NARE PRN (07:54)
--- NOTE | 2017-06-14 08:16 | PDOC.PN ---
- Subjective Encounter Start Date: 06/14/17 Encounter Start Time: 08:00 feels better - Objective Resuscitation Status: Resuscitation Status FULL:Full Resuscitation Vital Signs & Weight: Vital Signs (12 hours) Temp Pulse Resp BP Pulse Ox 06/14/17 07:22 97.6 F 87 24 H 92/60 95 06/13/17 23:47 92 22 H Weight Admit Weight 235 lb 12.8 oz Weight 199 lb 12.8 oz Most Recent Monitor Data Heart Rate from ECG 73 NIBP 94/71 NIBP BP-Mean 83 Respiration from ECG 33 SpO2 94 I&O: 06/13/17 06/14/17 06/15/17 06:59 06:59 06:59 Intake Total 30 492 Balance 30 492 Result Diagrams: 06/13/17 04:40 06/14/17 04:01 Additional Labs: Accuchecks 06/14/17 06/13/17 06/13/17 04:45 18:53 16:48 POC Glucose 125 H 130 H 132 H 06/13/17 11:04 POC Glucose 131 H Phys Exam - Physical Examination Constitutional: NAD HEENT: sclera anicteric Neck: no JVD Respiratory: no rales (+Rhonchi..) Cardiovascular: RRR Gastrointestinal: soft Musculoskeletal: no edema Neurological: moves all 4 limbs Psychiatric: normal affect, A&O x 3 Dx/Plan (1) Influenza A Code(s): J10.1 - FLU DUE TO OTH IDENT INFLUENZA VIRUS W OTH RESP MANIFEST Status: Acute (2) PNA (pneumonia) Code(s): J18.9 - PNEUMONIA, UNSPECIFIED ORGANISM Status: Acute Qualifiers: Pneumonia type: due to influenza A virus Laterality: bilateral (3) Alcohol abuse Code(s): F10.10 - ALCOHOL ABUSE, UNCOMPLICATED Status: Chronic (4) DM type 2 (diabetes mellitus, type 2) Status: Chronic Qualifiers: Diabetes mellitus complication status: with unspecified complications Diabetes mellitus assisted insulin use: without assisted use Qualified Code( s): E11.8 - Type 2 diabetes mellitus with unspecified complications Comment: new onset, BS satisfactory. (5) Obesity Code(s): E66.9 - OBESITY, UNSPECIFIED Status: Chronic Qualifiers: Obesity classification: adult class 2 (BMI 35 - 39.9) - Plan -: Overall condition better..as opposed to chest x-ray. -: Continue current therapy. -: f/u with pulmonary. * .
[2017-06-14] MEDS: Enoxaparin Sodium 40 MG/0.4 ML SYRINGE SC SCH (08:48)
[2017-06-14] MEDS: guaiFENesin ER 600 MG TAB PO SCH ×2 (08:48→20:01)
--- NOTE | 2017-06-14 16:48 | PRG ---
DATE OF SERVICE: 06/14/2017 SUBJECTIVE: History is obtained from talking with the son. Says he is better, he is less short of b reath. OBJECTIVE: VITAL SIGNS: His oxygen saturation is still running low 92 on 1 liter, respiratory rate of 20, tempe rature 97, blood pressure 92/60. CHEST: Bilateral crackles. CARDIAC: Normal S1, S2. ABDOMEN: Soft, no masses. LABORATORY DATA: Electrolytes are normal. Sodium 132. ASSESSMENT: Status post influenza, respiratory failure, hypoxemia. PLAN: Continue neb treatments, supportive care, PT. Hopefully, we can discharge home in the next 24 -48 hours.
[2017-06-14] MEDS: Ondansetron HCl/PF 4 MG/2 ML Vial IVP PRN (20:01)
[2017-06-15 05:18] LABS: Anion Gap 13 mmol/L (10-20); BUN (Urea Nitrogen) 12 mg/dL (8.4-25.7); Calc. Creatinine Clearance 141 mL/min (70-130); Carbon Dioxide 29 mmol/L (22-29); Chloride 96 mmol/L (98-107); Estimated GFR-MDRD Greater than 90; Glucose 107 mg/dL (70-105); Magnesium 2.2 mg/dL (1.6-2.6); Potassium 3.5 mmol/L (3.5-5.1); Sodium 134 mmol/L (136-145)
[2017-06-15] MEDS: Furosemide 20 MG/2 ML VIAL SLOW IVP SCH (05:50)
[2017-06-15] MEDS: Enoxaparin Sodium 40 MG/0.4 ML SYRINGE SC SCH (07:59)
[2017-06-15] MEDS: guaiFENesin ER 600 MG TAB PO SCH ×2 (07:59→20:16)
--- NOTE | 2017-06-15 08:57 | PDOC.PULPN ---
Progress Note: Subj/Obj - Subjective Date: 06/15/17 Time: 08:56 - ROS All systems: reviewed and no additional remarkable complaints except as stated Respiratory: cough - Objective Allergies/Adverse Reactions: Allergies Allergy/AdvReac Type Severity Reaction Status Date / Time Penicillins Allergy Verified 06/02/17 16:04 Medications: Current Medications Acetaminophen (Tylenol) 650 mg PO Q4H PRN PRN Reason: Headache/Fever or Pain Last Admin: 06/07/17 17:36 Dose: 650 mg Albuterol/Ipratropium (Duoneb) 3 ml NEB [id number] LONNIE Last Admin: 06/15/17 06:26 Dose: 3 ml Dextrose/Water (Dextrose 50%) 25 gm SLOW IVP PRN PRN PRN Reason: Hypoglycemia Enoxaparin Sodium (Lovenox) 40 mg SC 0900 [facility] Last Admin: 06/15/17 07:59 Dose: 40 mg Furosemide (Lasix) 20 mg PO DAILY LONNIE Glucagon (Glucagon) 1 mg IM PRN PRN PRN Reason: Hypoglycemia Guaifenesin (Mucinex) 600 mg PO Q12HR [facility] Last Admin: 06/15/17 07:59 Dose: 600 mg Dextrose/Water (D5w) 1,000 mls @ 0 mls/hr IV .Q0M PRN; As Directed PRN Reason: Hypoglycemia Insulin Human Lispro (Humalog) 0 units SC .MODERATE SLIDING SC PRN PRN Reason: Moderate Correctional Scale Last Admin: 06/12/17 12:56 Dose: 4 unit Ccu Electrolyte (Replacement Protocol) 0 each FS PRN PRN PRN Reason: FOR ELECTROLYTE REPLACEMENT Ondansetron HCl (Zofran) 4 mg IVP Q6H PRN PRN Reason: Nausea/Vomiting Last Admin: 06/14/17 20:01 Dose: 4 mg Potassium Chloride (K-Dur) 40 meq PO ASDIR PRN PRN Reason: FOR SERUM K+ 2.5 - 3.5 Sodium Chloride ([place] Nasal [place] 0.65%) 0 ml EA NARE PRN PRN PRN Reason: Nasal Dryness Zolpidem Tartrate (Ambien) 5 mg PO HSPRN PRN PRN Reason: Insomnia Last Admin: 06/02/17 21:15 Dose: 5 mg MAR Reviewed: Yes Vital Signs: Vital Signs Temp 97.8 F 06/15/17 08:00 Pulse 108 H 06/15/17 08:00 Resp 24 H 06/15/17 08:00 BP 90/64 06/15/17 07:00 Pulse Ox 92 L 06/15/17 07:00 Intake & Output 06/14/17 06/15/17 06/15/17 18:59 06:59 18:59 Intake Total 492 Balance 492 Intake: Intake, IV Amount 12 Oral 480 Other: Voiding Method Toilet Toilet Toilet # Unmeasured Voids 3 # Bowel Movements 0 Progress Note: Exam - Physical Exam Constitutional: NAD HEENT: PERRLA, sclera anicteric Neck: no nodes, no JVD Cardiovascular: RRR Focused Respiratory Location: rales: Right, Left, Lower Gastrointestinal: soft, non-tender, no distention Musculoskeletal: no edema, pulses present Neurological: non-focal, normal sensation, moves all 4 limbs Lymphatic: no nodes Psychiatric: normal affect, A&O x 3 Skin: no rash, normal turgor - Labs Result Diagrams: 06/13/17 04:40 06/15/17 04:19 Lab results: Laboratory Results - last 24 hr 06/14/17 06/14/17 06/14/17 11:11 16:15 19:35 Sodium Potassium Chloride Carbon Dioxide Anion Gap BUN Creatinine Estimated GFR (MDRD) Glucose POC Glucose 126 H 138 H 116 H Calcium Magnesium 06/15/17 06/15/17 04:19 04:50 Sodium 134 L Potassium 3.5 Chloride 96 L Carbon Dioxide 29 Anion Gap 13 BUN 12 Creatinine 0.75 Estimated GFR (MDRD) Greater than 90 Glucose 107 H POC Glucose 106 Calcium 9.0 Magnesium 2.2 Progress Note: A/P - Problems (1) Hypoxemia Current Visit: Yes Status: Acute Code(s): R09.02 - HYPOXEMIA (2) Influenza A Current Visit: Yes Status: Acute Code(s): J10.1 - FLU DUE TO OTH IDENT INFLUENZA VIRUS W OTH RESP MANIFEST (3) PNA (pneumonia) Current Visit: Yes Status: Acute Code(s): J18.9 - PNEUMONIA, UNSPECIFIED ORGANISM Qualifiers: Pneumonia type: due to influenza A virus Laterality: bilateral - Plan Plan: I turned his oxygen down from 3 to 1 L this am. If his O2 sats hold, then I think he is ready for dc
--- NOTE | 2017-06-15 09:01 | PDOC.PN ---
- Subjective Encounter Start Date: 06/15/17 Encounter Start Time: 09:45 Subjective: SOB mildly improved. Still very dyspneic when ambulates or stands. - Objective Resuscitation Status: Resuscitation Status FULL:Full Resuscitation MAR Reviewed: Yes Vital Signs & Weight: Vital Signs (12 hours) Temp Pulse Resp BP Pulse Ox 06/15/17 08:00 97.8 F 108 H 24 H 06/15/17 07:00 97.8 F 108 H 24 H 90/64 92 L 06/15/17 06:26 89 16 99 06/15/17 00:08 86 20 96 Weight Admit Weight 235 lb 12.8 oz Weight 199 lb 12.8 oz Most Recent Monitor Data Heart Rate from ECG 73 NIBP 94/71 NIBP BP-Mean 83 Respiration from ECG 33 SpO2 94 I&O: 06/14/17 06/15/17 06/16/17 06:59 06:59 06:59 Intake Total 492 492 Balance 492 492 Result Diagrams: 06/13/17 04:40 06/15/17 04:19 Additional Labs: Accuchecks 06/15/17 06/14/17 06/14/17 04:50 19:35 16:15 POC Glucose 106 116 H 138 H 06/14/17 11:11 POC Glucose 126 H Phys Exam - Physical Examination Constitutional: NAD HEENT: moist MMs Respiratory: no wheezing, no rales, no rhonchi increase WOB, standing currently, O2 sat staying in mid 90s on 3L NC. Cardiovascular: RRR, no significant murmur Gastrointestinal: soft, positive bowel sounds Musculoskeletal: no edema Neurological: non-focal, moves all 4 limbs Psychiatric: normal affect, A&O x 3 Dx/Plan (1) Influenza A Code(s): J10.1 - FLU DUE TO OTH IDENT INFLUENZA VIRUS W OTH RESP MANIFEST Status: Acute (2) PNA (pneumonia) Code(s): J18.9 - PNEUMONIA, UNSPECIFIED ORGANISM Status: Acute Qualifiers: Pneumonia type: due to influenza A virus Laterality: bilateral (3) Alcohol abuse Code(s): F10.10 - ALCOHOL ABUSE, UNCOMPLICATED Status: Chronic (4) DM type 2 (diabetes mellitus, type 2) Status: Chronic Qualifiers: Diabetes mellitus complication status: with unspecified complications Diabetes mellitus halfway insulin use: without halfway use Qualified Code( s): E11.8 - Type 2 diabetes mellitus with unspecified complications Comment: new onset, BS satisfactory. (5) Obesity Code(s): E66.9 - OBESITY, UNSPECIFIED Status: Chronic Qualifiers: Obesity classification: adult class 2 (BMI 35 - 39.9) - Plan cont current plan of care, respiratory therapy, DVT proph w/lovenox, DVT proph w /SCDs on Lasix for volume overload, normal EF on ECHO * . - Discharge Day Encounter end time: 10:00
[2017-06-15] MEDS: Furosemide 20 MG TAB PO SCH (09:30)
[2017-06-16 05:10] LABS: #Basophils 0.1 thou/uL (0.0-0.2); #Eosinphils 0.9 thou/uL (0.0-0.7); #Lymphocytes 2.3 thou/uL (1.20-3.40); #Neutrophils 12.8 thou/uL (1.40-6.50); %Basophils 0.4 % (0.0-1.0); %Eosinophils 5.1 % (0.0-10.0); %Lymphocytes 13.2 % (21.0-51.0); %Neutrophils 75.3 % (42.0-75.0); Hemoglobin 14.4 g/dL (14.0-18.0); Mean Corpuscular HGB CONC 35.3 g/dL (32.0-36.0); Mean Corpuscular Hemoglobin 34.3 pg (27.0-31.0); Platelet Count 278 thou/uL (130-400); RBC Distribution Width 11.9 % (11.5-14.5); White Blood Cell (WBC) Count 17.1 thou/uL (4.8-10.8)
[2017-06-16 05:23] LABS: Anion Gap 12 mmol/L (10-20); BUN (Urea Nitrogen) 10 mg/dL (8.4-25.7); Calc. Creatinine Clearance 139 mL/min (70-130); Calcium 8.7 mg/dL (7.8-10.44); Carbon Dioxide 29 mmol/L (22-29); Chloride 96 mmol/L (98-107); Estimated GFR-MDRD Greater than 90; Glucose 121 mg/dL (70-105); Magnesium 2.2 mg/dL (1.6-2.6); Potassium 3.2 mmol/L (3.5-5.1); Sodium 134 mmol/L (136-145)
[2017-06-16] MEDS ORDERED: Potassium Chloride 20 MEQ TAB PO SCH (08:00)
[2017-06-16] MEDS: Enoxaparin Sodium 40 MG/0.4 ML SYRINGE SC SCH (08:12)
[2017-06-16] MEDS: guaiFENesin ER 600 MG TAB PO SCH (08:12)
[2017-06-16] MEDS: Furosemide 20 MG TAB PO SCH (08:13)
[2017-06-16 09:10] VITALS: BP 95/65; TEMP 97.9
--- NOTE | 2017-06-16 10:37 | PDOC.PN ---
- Subjective Encounter Start Date: 06/16/17 Encounter Start Time: 09:30 -: old records requested/rev Patient seen and examined. No new complaints. No overnight events - Objective Resuscitation Status: Resuscitation Status FULL:Full Resuscitation MAR Reviewed: Yes Vital Signs & Weight: Vital Signs (12 hours) Temp Pulse Resp BP Pulse Ox 06/16/17 08:00 97.9 F 92 20 95/65 91 L 06/16/17 06:38 78 14 95 06/16/17 00:03 95 16 93 L Weight Admit Weight 235 lb 12.8 oz Weight 199 lb 12.8 oz Most Recent Monitor Data Heart Rate from ECG 73 NIBP 94/71 NIBP BP-Mean 83 Respiration from ECG 33 SpO2 94 I&O: 06/15/17 06/16/17 06/17/17 06:59 06:59 06:59 Intake Total 492 730 Balance 492 730 Result Diagrams: 06/16/17 04:22 06/16/17 04:22 Additional Labs: Accuchecks 06/16/17 06/15/17 06/15/17 03:59 19:29 16:44 POC Glucose 162 H 105 129 H 06/15/17 11:45 POC Glucose 124 H Phys Exam - Physical Examination Constitutional: NAD HEENT: PERRLA, moist MMs, sclera anicteric Neck: no JVD, supple Respiratory: no wheezing, no rales, no rhonchi Cardiovascular: RRR, no significant murmur, no rub Gastrointestinal: soft, non-tender, no distention, positive bowel sounds Musculoskeletal: no edema, pulses present Neurological: non-focal, normal sensation, moves all 4 limbs Psychiatric: normal affect, A&O x 3 Skin: no rash, normal turgor Dx/Plan (1) Acute respiratory distress Code(s): R06.03 - ACUTE RESPIRATORY DISTRESS Status: Acute (2) Hypoxemia Code(s): R09.02 - HYPOXEMIA Status: Acute (3) Influenza A Code(s): J10.1 - FLU DUE TO OTH IDENT INFLUENZA VIRUS W OTH RESP MANIFEST Status: Acute (4) Pneumonia, community acquired Code(s): J18.9 - PNEUMONIA, UNSPECIFIED ORGANISM Status: Acute (5) Sepsis Code(s): A41.9 - SEPSIS, UNSPECIFIED ORGANISM Status: Acute Qualifiers: Sepsis type: sepsis due to unspecified organism Qualified Code(s): A41.9 - Sepsis, unspecified organism (6) Alcohol abuse Code(s): F10.10 - ALCOHOL ABUSE, UNCOMPLICATED Status: Chronic (7) DM type 2 (diabetes mellitus, type 2) Status: Chronic Qualifiers: Diabetes mellitus complication status: with unspecified complications Diabetes mellitus residential insulin use: without residential use Qualified Code( s): E11.8 - Type 2 diabetes mellitus with unspecified complications Comment: new onset, BS satisfactory. (8) Obesity Code(s): E66.9 - OBESITY, UNSPECIFIED Status: Chronic Qualifiers: Obesity classification: adult class 2 (BMI 35 - 39.9) - Plan cont current plan of care * now on room air and saturating normal * he has done treatment for pneumonia and flu * medication reviewed as below * symptomatic treatment. Review of Systems - Review of Systems ENT: negative: Ear Pain, Ear Discharge, Nose Pain, Nose Discharge, Nose Congestion, Mouth Pain, Mouth Swelling, Throat Pain, Throat Swelling, Other Respiratory: negative: Cough, Dry, Shortness of Breath, Hemoptysis, SOB with Excertion, Pleuritic Pain, Sputum, Wheezing Cardiovascular: negative: chest pain, palpitations, orthopnea, paroxysmal nocturnal dyspnea, edema, light headedness, other Gastrointestinal: negative: Nausea, Vomiting, Abdominal Pain, Diarrhea, Constipation, Melena, Hematochezia, Other Genitourinary: negative: Dysuria, Frequency, Incontinence, Hematuria, Retention , Other Musculoskeletal: negative: Neck Pain, Shoulder Pain, Arm Pain, Back Pain, Hand Pain, Leg Pain, Foot Pain, Other Skin: negative: Rash, Lesions, Ean, Bruising, Other - Medications/Allergies Allergies/Adverse Reactions: Allergies Allergy/AdvReac Type Severity Reaction Status Date / Time Penicillins Allergy Verified 06/02/17 16:04 Medications: Current Medications Acetaminophen (Tylenol) 650 mg PO Q4H PRN PRN Reason: Headache/Fever or Pain Last Admin: 06/07/17 17:36 Dose: 650 mg Albuterol/Ipratropium (Duoneb) 3 ml NEB [id number] [facility] Last Admin: 06/16/17 06:38 Dose: 3 ml Dextrose/Water (Dextrose 50%) 25 gm SLOW IVP PRN PRN PRN Reason: Hypoglycemia Enoxaparin Sodium (Lovenox) 40 mg SC 0900 [facility] Last Admin: 06/16/17 08:12 Dose: 40 mg Furosemide (Lasix) 20 mg PO DAILY [facility] Last Admin: 06/16/17 08:13 Dose: 20 mg Glucagon (Glucagon) 1 mg IM PRN PRN PRN Reason: Hypoglycemia Guaifenesin (Mucinex) 600 mg PO Q12HR [facility] Last Admin: 06/16/17 08:12 Dose: 600 mg Dextrose/Water (D5w) 1,000 mls @ 0 mls/hr IV .Q0M PRN; As Directed PRN Reason: Hypoglycemia Insulin Human Lispro (Humalog) 0 units SC .MODERATE SLIDING SC PRN PRN Reason: Moderate Correctional Scale Last Admin: 06/12/17 12:56 Dose: 4 unit Ccu Electrolyte (Replacement Protocol) 0 each FS PRN PRN PRN Reason: FOR ELECTROLYTE REPLACEMENT Ondansetron HCl (Zofran) 4 mg IVP Q6H PRN PRN Reason: Nausea/Vomiting Last Admin: 06/14/17 20:01 Dose: 4 mg Potassium Chloride (K-Dur) 40 meq PO ASDIR PRN PRN Reason: FOR SERUM K+ 2.5 - 3.5 Sodium Chloride ([place] Nasal [place] 0.65%) 0 ml EA NARE PRN PRN PRN Reason: Nasal Dryness Zolpidem Tartrate (Ambien) 5 mg PO HSPRN PRN PRN Reason: Insomnia Last Admin: 06/02/17 21:15 Dose: 5 mg
--- NOTE | 2017-06-16 10:56 | PRG ---
DATE OF SERVICE: 06/16/2017 SUBJECTIVE: The patient is doing well, has no complaints. PHYSICAL EXAMINATION: VITAL SIGNS: His O2 sat is 97% on room air, temperature 97.9, pulse 92, respirations 20. HEENT: Unremarkable. NECK: No JVD. CHEST: Few crackles in the bases. CARDIAC: S1 and S2 regular. ABDOMEN: Soft. EXTREMITIES: No edema. LABORATORY DATA: White blood cell count 17, hematocrit 40.8, platelet count 278. Sodium 134, potass ium 3.2, BUN 10, creatinine 0.7, glucose 121. ASSESSMENT: 1. Status post bilateral pneumonia related to influenza. 2. Status post respiratory failure. PLAN: In my opinion, the patient is stable for discharge to home today. There are no other issues f rom Pulmonary and Critical Care standpoint. I will sign off.
--- NOTE | 2017-06-16 12:03 | DIS ---
DATE OF ADMISSION: 05/29/2017 DATE OF DISCHARGE: 06/16/2017 PRIMARY CARE PHYSICIAN: Maria Dolores Briseno. DISCHARGE DISPOSITION: Home. PRIMARY DISCHARGE DIAGNOSES: Acute hypoxic respiratory failure, sepsis with acute organ dysfunction, post-influenza community-acquired pneumonia, influenza, volume overload. SECONDARY DISCHARGE DIAGNOSIS: None. PRIMARY PROCEDURE/OPERATION: None. RADIOLOGICAL INVESTIGATION: Echocardiography showed normal EF. Chest x-ray on admission showed bila teral pneumonia. Subsequently, the patient had several chest x-rays while in hospital. SIGNIFICANT LABORATORY DATA: WBC 17.1, hemoglobin 14.4, platelet 278. Sodium 134, potassium 3.2, BU N 10, creatinine 0.76, calcium 8.2, magnesium 2.2. Urinalysis unremarkable. Urine drug screen negat rico. Serum drug screen negative. HIV negative. Blood culture negative. Urine culture negative. I nfluenza screen came back negative initially, but respiratory virus panel showed Influenza A positive . DISCHARGE MEDICATIONS: On discharge, he did not require any medication. The patient has finished co mplete course of antibiotic while in the hospital including influenza treatment. CONTRAINDICATIONS: None. CODE STATUS: FULL CODE. INPATIENT CONSULTANTS: Dr. Michaels and Dr. Flores was following while in hospital. TEST RESULTS PENDING ON DISCHARGE: None. ALLERGIES: PENICILLIN. DISCHARGE PLAN: Post hospital, the patient will follow up with primary care physician. HOSPITAL COURSE: A 56-year-old male who has history of alcohol abuse, who was brought to [facility] emergency room with respiratory symptoms. He was having cough with sputum for 2 days. He was admi tted by Dr. Gonzalez, please see his H&P for further details. This patient has a history of alcoh ol abuse. Initially, his influenza screen was negative. Subsequently, respiratory virus panel showe d influenza A positive. He was having hypoxic respiratory failure, requiring BiPAP. He was also hyp otensive. He was admitted in the IMCU. Pulmonary group was following while in hospital. After IMCU admission, the patient had several chest x-rays, pulmonary group and Dr. Flores was follo wing while in hospital. Upon improvement, this patient was transferred to medical floor. The patien t has finished complete course of antibiotic as well as flu treatment. He remained in the hospital l onger because he developed volume overload and he was having persistent hypoxia. The patient was giv en Lasix and with that the patient's hypoxia completely improved. Today, my first day with the patient, I reviewed his entire chart from the hospital from day 1 to til l today. Now, he has good diuresis and he has oxygen saturation improved to normal. He does not nee d any oxygen therapy. Because of diuretic therapy, he had electrolytes problem which was replaced to day. He has completed treatment while in hospital. He is ambulatory, tolerating p.o. well, and he a lso expressed his wish to go home. Today, I provided patient counseling to avoid alcohol abuse. The patient will follow up with primary care physician and he will have a repeat chest x-ray upon followup visit. At this point, he does no t need any medication. The patient is seen and examined at bedside today. Please see my progress note from today for furthe r details. Pulmonary group cleared him for discharge. Total time spent on discharge is 31 minutes.
== END 2017-06-16 13:38 | disposition home or self-care (01) | DRG 871 ==
LOC: SCSER 21:09 → OBSVTOIN 05-29 00:32 → 2SW 05-29 00:32 → 2NO 05-29 17:33 → IMCU/EMU 05-30 21:16 → CCU 05-31 15:04 → IMCU/EMU 06-04 17:17 → T4-B 06-10 14:42
PROVIDERS: ADMIT Family Medicine; ATTEND Family Medicine
PROC: 5A09557 Assistance with Respiratory Ventilation, Greater than 96 Consecutive Hours, Continuous Positive Airway Pressure (ICD-10-PCS; principal; 2017-05-30)
DX: A41.9 Sepsis, unspecified organism (principal); J96.01 Acute respiratory failure with hypoxia; J10.00 Influenza due to other identified influenza virus with unspecified type of pneumonia; F10.230 Alcohol dependence with withdrawal, uncomplicated; J20.9 Acute bronchitis, unspecified; E11.9 Type 2 diabetes mellitus without complications; E87.70 Fluid overload, unspecified; R65.20 Severe sepsis without septic shock; E66.9 Obesity, unspecified; Z68.33 Body mass index [BMI] 33.0-33.9, adult; Z88.0 Allergy status to penicillin
CPT/HCPCS: 36415; 36416; 71010; 71020; 71045; 80048; 80053; 80202; 80306; 80307; 81001; 82533; 82553; 82805; 83605; 83735; 83880; 84100; 84484; 85007; 85025; 85027; 87040; 87070; 87086; 87205; 87389; 87633; 93005; 93306; 94640; 94660; 94760; 96365; 96375; A4216; J0456; J0692; J0696; J1650; J1940; J1956; J2405; J2920; J3370; J3411; J7050; J7506; J7620

== ENCOUNTER 2019-09-18 07:25 | Observation (INO) | payer OTHER ==
[2019-09-18] MEDS ORDERED: Nitroglycerin 2% Ointment 1 INCH/1 GM Packet ONE (07:46)
[2019-09-18] MEDS ORDERED: Ondansetron PF 4 MG/2 ML Vial ONE (07:46)
[2019-09-18 08:35] LABS: #Basophils 0.1 thou/uL (0.0-0.2); #Eosinphils 0.2 thou/uL (0.0-0.7); #Lymphocytes 3.8 thou/uL (1.20-3.40); #Monocytes 0.6 thou/uL (0.11-0.59); #Neutrophils 10.2 thou/uL (1.40-6.50); %Basophils 0.6 % (0.0-1.0); %Eosinophils 1.3 % (0.0-10.0); %Lymphocytes 25.6 % (21.0-51.0); %Monocytes 4.1 % (0.0-10.0); %Neutrophils 68.4 % (42.0-75.0); Hemoglobin 17.9 g/dL (14.0-18.0); Mean Corpuscular HGB CONC 33.9 g/dL (32.0-36.0); Mean Corpuscular Hemoglobin 32.4 pg (27.0-31.0); Mean Corpuscular Volume 95.4 fL (78.0-98.0); Mean Platelet Volume 9.5 fL (7.4-10.4); Platelet Count 249 thou/uL (130-400); RBC Distribution Width 12.2 % (11.5-14.5); Red Blood Cell (RBC) Count 5.53 mill/uL (4.70-6.10); White Blood Cell (WBC) Count 14.9 thou/uL (4.8-10.8)
[2019-09-18] MEDS ORDERED: Aspirin Chewable 81 MG TAB ONE (08:40)
[2019-09-18 08:47] LABS: ALT (SGPT) 35 U/L (8-55); AST (SGOT) 24 U/L (5-34); Albumin 4.6 g/dL (3.5-5.0); Alkaline Phosphatase 86 U/L (40-110); Anion Gap 17 mmol/L (10-20); BUN (Urea Nitrogen) 12 mg/dL (8.4-25.7); Bilirubin, Total 0.5 mg/dL (0.2-1.2); Calc. Creatinine Clearance 0 mL/min (70-130); Calcium 9.8 mg/dL (7.8-10.44); Carbon Dioxide 25 mmol/L (22-29); Chloride 103 mmol/L (98-107); Estimated GFR-MDRD 73; Globulin 4.1 g/dL (2.4-3.5); Glucose 166 mg/dL (70-105); Lipase 17 U/L (8-78); Potassium 3.7 mmol/L (3.5-5.1); Protein, Total 8.7 g/dL (6.0-8.3); Sodium 141 mmol/L (136-145)
--- NOTE | 2019-09-18 09:03 | RAD ---
CHEST ONE VIEW: HISTORY: Chest pain. COMPARISON: 06/13/2017 FINDINGS: Minimal increased linear and interstitial markings in the perihilar regions but showing definite impr ovement from prior 06/13/2017 study. No confluent pneumonia, overt edema or pleural effusion. IMPRESSION: Minimal increased markings in the perihilar regions but definitely improved from a prior 2018 study. POS: [facility]
[2019-09-18] MEDS ORDERED: Mag-Al 1200 mg/1200 mg/30 ML UDCUP ONE (09:56)
[2019-09-18] MEDS ORDERED: Lidocaine Viscous Sol 2% 15 ml UD Cup ONE (09:56)
[2019-09-18] MEDS ORDERED: Dextrose 50% Abboject 50 ML SYRINGE SLOW IVP PRN (10:28)
[2019-09-18] MEDS ORDERED: Guaifenesin DM 100-10/5 ML UDCUP PO PRN (10:28)
[2019-09-18] MEDS ORDERED: Bisacodyl 10 MG SUPP PR PRN (10:28)
[2019-09-18] MEDS ORDERED: Dextrose 5% in Water 1,000 ML IV PRN (10:28)
[2019-09-18] MEDS ORDERED: Senokot S 8.6-50 MG TAB PO PRN (10:28)
[2019-09-18] MEDS ORDERED: Nitroglycerin 0.4 MG TAB (25 Tab Bottle) PO PRN (10:28)
[2019-09-18] MEDS ORDERED: HumaLOG 300 UNITS/3 ML VIAL SC PRN ×2 (10:28)
[2019-09-18 10:51] VITALS: BMI 37.8
[2019-09-18 11:01] LABS: Acetaminophen Less than 6.0 mcg/mL (10.0-30.0); Alcohol Less than 10 mg/dL (Less than 10); Salicylate Less than 8.0 mg/dL (15.0-30.0)
[2019-09-18] MEDS: Sodium Chloride 0.9% 1,000 ML IV SCH (11:05)
[2019-09-18] MEDS: Ondansetron PF 4 MG/2 ML Vial IVP PRN ×2 (11:50→20:28)
[2019-09-18 12:10] LABS: Troponin I 0.012 ng/mL (< 0.028)
[2019-09-18] MEDS ORDERED: Iopamidol 370 76% 100 ML VIAL ONE (13:13)
[2019-09-18 13:19] LABS: Amphetamine Not Detected (NotDetected); Barbiturates Screen Not Detected (NotDetected); Benzodiazepine Screen Not Detected (NotDetected); Cocaine Metabolite Screen Not Detected (NotDetected); Medtox Control Line Valid? VALID (VALID); Medtox Reader # READER 4; Methadone Not Detected (NotDetected); Methamphetamine Not Detected (NotDetected); Opiate Screen Not Detected (NotDetected); Oxycodone Screen Not Detected (NotDetected); Phencyclidine (PCP) Not Detected (NotDetected); THC/Cannabinoid Screen Not Detected (NotDetected); Tricyclic Screen Not Detected (NotDetected)
[2019-09-18 14:38] LABS: Troponin I Less than 0.010 ng/mL (< 0.028)
--- NOTE | 2019-09-18 14:57 | CT ---
ABDOMEN AND PELVIC CT SCAN WITH IV CONTRAST: Date: 09/18/2019 HISTORY: Intractable nausea. Upper quadrant pain. FINDINGS: No significant acute process in the visualized lungs. Liver, gallbladder, pancreas, and spleen are un remarkable. 1.0 cm diameter fatty density in the left adrenal gland, evidence for a myolipoma. No raymond al calculus or acute obstruction. No CT evidence for acute appendicitis. No abscess, adenopathy, o r abnormal fluid collection within the abdomen or pelvis. Fat-containing right inguinal hernia. Borde rline prominent prostate gland. Multilevel lumbar spinal canal stenosis including L5-S1, L4-L5, and L 3-L4 levels, with overall generalized narrowing of the lower thoracic and lumbar spine canal, probabl y in part related to generalized foreshortened pedicles. IMPRESSION: 1. No significant acute process in the abdomen or pelvis. 2. Evidence for a left adrenal myolipoma. 3. Fat-containing right inguinal hernia. 4. Multilevel up to severe lumbar and lower thoracic spine stenosis. POS: [facility]
--- NOTE | 2019-09-18 15:37 | HP ---
REASON FOR ADMISSION: Epigastric pain with retrosternal pain. HISTORY OF PRESENTING ILLNESS: The patient gives history of waking up around 4 a.m. with severe nausea and epigastric pain. This pain was 8/10 in intensity and was radiating up to his retrosternal area. He thinks it is the food that he ate yesterday. He apparently had some sausages with other food that he cannot recall at present. Last bowel movement was yesterday evening, which he says was looking brown. Currently, he is uncomfortable to lay down due to significant pain, but is slightly comfortable on sitting up or standing. No complaints of palpitations or PND. Has not vomited as such so far. PAST MEDICAL AND SURGICAL HISTORY: History of diabetes mellitus type 2, hypertension, obesity, not being compliant with any medications. Prior history of pneumonia, influenza A infection in the past, history of alcohol abuse. CURRENT MEDICATIONS: The patient does not take anything. ALLERGIES: ALLERGIC TO PENICILLIN. PERSONAL HISTORY: Drinks on social occasions. Does not abuse drugs or smoke. FAMILY HISTORY: Mother in her 50s. She had a mass in her throat. Father is living and is apparently healthy. CODE STATUS: Full. 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 REVIEW OF SYSTEMS: CONSTITUTIONAL: Negative for weight loss or gain, ability to conduct usual activities. SKIN: Negative for rash, itching. EYES: Negative for double vision, pain. ENT/MOUTH: Negative for nose bleeding, neck stiffness, pain, tenderness. CARDIOVASCULAR: Negative for palpitations, dyspnea on exertion, orthopnea. RESPIRATORY: Negative for shortness of breath, wheezing, cough, hemoptysis, fever or night sweats. GASTROINTESTINAL: Negative for poor appetite, abdominal pain, heartburn, nausea , vomiting, constipation, or diarrhea. GENITOURINARY: Negative for urgency, frequency, dysuria, nocturia. MUSCULOSKELETAL: Negative for pain, swelling. NEUROLOGIC/PSYCHIATRIC: Negative for anxiety, depression. ALLERGY/IMMUNOLOGIC: Negative for skin rash, bleeding tendency. PHYSICAL EXAMINATION: GENERAL: The patient is a 58-year-old male who is currently not in any acute distress. VITAL SIGNS: Blood pressure 166/96, pulse 70 per minute, respiratory rate 20 per minute. The patient is afebrile at 97.9 degrees Fahrenheit, saturating 94% on room air. NECK: Supple. No elevated JVD. HEENT: Eyes, extraocular muscles intact. Pupils reacting to light. Oral cavity, mucous membranes are dry. No exudates or congestion. CARDIOVASCULAR SYSTEM: S1-S2 heard, regular rhythm. RESPIRATORY: Air entry 1+ bilateral. Scattered rhonchi plus no rales or wheezes. ABDOMEN: Mildly distended. There is tenderness in both upper quadrants, worse on the right upper quadrant. No rigidity or guarding. Bowel sounds are heard. EXTREMITIES: No peripheral edema or calf tenderness. VASCULAR SYSTEM: Peripheral pulses 2+ bilateral. No ischemic ulcerations or gangrene. CENTRAL NERVOUS SYSTEM: No gross focal motor deficits noted. The patient is alert, awake, oriented well. PSYCHIATRIC SYSTEM: The patient's mood is euthymic. No hallucinations or delusions. LABORATORY DATA: Urine drug screen is negative. Serum drug screen with plasma alcohol level less than 10. Chest x-ray done shows no acute infiltrate. There are increased markings in the perihilar area. CT of the abdomen and pelvis shows no significant acute process. Liver, gallbladder, pancreas, and spleen are unremarkable. There is incidental finding of left adrenal myelolipoma. There is fat containing right inguinal hernia. Liver enzymes are within normal limits. BNP less than 10. Troponin x3 negative. Albumin is 4.6. Lipase is 17. BUN 12, creatinine 1.0. Electrolytes stable. Serum glucose 166. White count of 14, H and H 17 and 52, platelet count 249, MCV is 95 with 68% neutrophils. EKG done shows normal sinus rhythm at 74 beats per minute. There is incomplete RBBB seen. CLINICAL IMPRESSION AND PLAN: The patient will be under observation on telemetry for bilateral upper quadrant pain with radiation to the retrosternal area. He has also felt very nauseous. It is unclear if this is related to food poisoning versus acute coronary syndrome. He has had 3 sets of troponin which are negative. Mr. Hilario has multiple risk factors and is noncompliant with medications. In fact, he is not taking any at present. We will obtain a nuclear stress test in the morning as there are no signs of bowel obstruction. Liver enzymes are within normal limits and CAT scan has been read as there is no abnormality seen in the liver. He will be on full-dose aspirin and gentle hydration with normal saline at 70 mL per hour. We will also place him on a low-dose Lopressor with moderate Humalog sliding scale. Likely, the patient needs to go on metformin in the morning once the stress test is negative. He was counseled with regard to medication compliance. He is accompanied by his daughter at bedside. Job ID: [id number] [email or web address]
[2019-09-18] MEDS ORDERED: Morphine 2 MG/ML SYRINGE SLOW IVP PRN (17:17)
[2019-09-18] MEDS: Acetaminophen 325 MG TAB PO PRN (17:23)
--- NOTE | 2019-09-18 17:39 | PDOC.EVN ---
Event Note - Event Note Event Note: still has abd pain with colic ruq usg to r/o cholecystitis, CT abd showed liver and gall bladder to be normal morphine prn, protonix prn, nitropaste q6h d/w informally over phone, he will be on the look out for usg findings, will consult if usg is +ve. CT abd shows no ac findings including obstr uropathy will also add lidocaine tts for thoracolumbar spine issues unlikely to be cause of current pain.
[2019-09-18] MEDS ORDERED: Morphine 4 MG/ML VIAL SLOW IVP PRN (17:40)
[2019-09-18] MEDS: Nitroglycerin 2% Ointment 1 INCH/1 GM Packet TOP SCH (17:54)
--- NOTE | 2019-09-18 18:36 | ULT ---
ULTRASOUND GALLBLADDER RIGHT UPPER QUADRANT: History: Pain History: None FINDINGS: Real-time grayscale and color evaluation of the right upper quadrant of the abdomen was performed. Visualized portions of the IVC and pancreas unremarkable. Mild diffuse increased hepatic architecture . Gallbladder wall thickness is normal. Liver measures 17.4 cm in length. No pericholecystic fluid. The right kidney is without mass, hydronephrosis or abnormal calcifications . Sonographic Garcia's sign is negative. IMPRESSION: 1. No cholelithiasis or cholecystitis. 2. Normal common bile duct. No intrahepatic or extrahepatic biliary dilatation. 3. Steatosis. POS: HOME
[2019-09-18] MEDS: Metoprolol Tartrate 25 MG TAB PO SCH (20:28)
[2019-09-18] MEDS: Pantoprazole 40 MG VIAL IVP SCH (20:28)
[2019-09-19] MEDS: Sodium Chloride 0.9% 1,000 ML IV SCH ×2 (03:02→16:06)
[2019-09-19] MEDS: Nitroglycerin 2% Ointment 1 INCH/1 GM Packet TOP SCH ×3 (03:08→18:14)
[2019-09-19 05:15] LABS: #Basophils 0.1 thou/uL (0.0-0.2); #Lymphocytes 2.7 thou/uL (1.20-3.40); #Monocytes 1.9 thou/uL (0.11-0.59); #Neutrophils 15.2 thou/uL (1.40-6.50); %Basophils 0.3 % (0.0-1.0); %Eosinophils 0.2 % (0.0-10.0); %Lymphocytes 13.5 % (21.0-51.0); %Monocytes 9.4 % (0.0-10.0); %Neutrophils 76.7 % (42.0-75.0); Hemoglobin 16.4 g/dL (14.0-18.0); Mean Platelet Volume 9.4 fL (7.4-10.4); Platelet Count 236 thou/uL (130-400); RBC Distribution Width 12.3 % (11.5-14.5); Red Blood Cell (RBC) Count 5.12 mill/uL (4.70-6.10); White Blood Cell (WBC) Count 19.8 thou/uL (4.8-10.8)
[2019-09-19 05:39] LABS: Anion Gap 12 mmol/L (10-20); BUN (Urea Nitrogen) 9 mg/dL (8.4-25.7); Calc. Creatinine Clearance 156 mL/min (70-130); Carbon Dioxide 20 mmol/L (22-29); Cardiac Risk 3.7 (Less than 4.5); Chloride 107 mmol/L (98-107); Cholesterol 161 mg/dl (< 200 Desired); Estimated GFR-MDRD Greater than 90; Glucose 121 mg/dL (70-105); HDL Cholesterol 44 mg/dL (>60 Neg Risk); LDL Cholesterol, Calculated 102 mg/dL; Potassium 3.8 mmol/L (3.5-5.1); Sodium 135 mmol/L (136-145); Triglycerides 76 mg/dL (Less than 150)
[2019-09-19] MEDS: Acetaminophen 325 MG TAB PO PRN (08:23)
[2019-09-19] MEDS: Pantoprazole 40 MG VIAL IVP SCH (08:24)
[2019-09-19] MEDS ORDERED: Aspirin 325 mg Enteric Coated Tablet PO SCH (09:00)
[2019-09-19] MEDS ORDERED: Prevnar 13-Val Conj/PF 0.5 ML SYRINGE IM ONE (09:00)
[2019-09-19] MEDS ORDERED: Lidocaine 5% Patch TD SCH (09:00)
[2019-09-19] MEDS ORDERED: Enoxaparin Sodium 40 MG/0.4 ML SYRINGE SC SCH (09:00)
--- NOTE | 2019-09-19 12:51 | PDOC.HOSPP ---
- Subjective Encounter Date: 09/19/19 Encounter Time: 12:53 Subjective: abd pain, going in for stress test - Objective Vital Signs & Weight: Vital Signs (12 hours) Temp Pulse Resp BP BP Pulse Ox 09/19/19 08:15 97.8 F 101 H 22 H 134/73 94 L 09/19/19 03:59 98.9 F 92 22 H 132/79 92 L Weight Weight 241 lb 12.8 oz I&O: 09/18/19 09/19/19 09/20/19 06:59 06:59 06:59 Intake Total 5 Output Total 1220 Balance 825 Result Diagrams: 09/19/19 04:52 09/19/19 04:52 Additional Labs: Accuchecks 09/18/19 09/18/19 09/18/19 20:24 17:04 11:36 POC Glucose 148 H 133 H 146 H Hospitalist ROS - Medication Medications: Active Medications Generic Name Dose Route Start Last Admin Trade Name Freq PRN Reason Stop Dose Admin Acetaminophen 650 mg 09/18/19 10:28 09/19/19 08:23 Tylenol PO 650 mg Q4H PRN Administration Headache/Fever/Mild Pain (1-3) Aspirin 325 mg 09/19/19 09:00 09/19/19 08:24 Ecotrin PO 325 mg DAILY LONNIE Administration Enoxaparin Sodium 40 mg 09/19/19 09:00 09/19/19 08:24 Lovenox SC 40 mg 0900 LONNIE Administration Sodium Chloride 1,000 mls @ 70 mls/hr 09/18/19 10:30 09/19/19 03:02 Normal Saline 0.9% IV 1,000 mls .[id number] LONNIE Administration Lidocaine 1 patch 09/19/19 09:00 09/19/19 08:25 Lidoderm 5% Patch TD Not Given DAILY LONNIE Metoprolol Tartrate 12.5 mg 09/18/19 21:00 09/18/19 20:28 Lopressor PO 12.5 mg BID LONNIE Administration Morphine Sulfate 4 mg 09/18/19 17:40 09/18/19 17:57 Morphine SLOW IVP 4 mg Q4H PRN Administration Severe Pain (7-10) Nitroglycerin 1 inch 09/18/19 17:30 09/19/19 03:08 Nitro-Bid 2% Ointment TOP 1 inch Q8H LONNIE Administration Ondansetron HCl 4 mg 09/18/19 10:28 09/18/19 20:28 Zofran IVP 4 mg Q6H PRN Administration Nausea/Vomiting Pantoprazole Sodium 40 mg 09/18/19 21:00 09/19/19 08:24 Protonix IVP 40 mg Q12HR LONNIE Administration Senna/Docusate Sodium 2 tab 09/18/19 10:28 09/18/19 17:22 Senokot S PO 2 tab BIDPRN PRN Administration Constipation - Exam Eye: PERRL, anicteric sclera ENT: normocephalic atraumatic, no oropharyngeal lesions, moist mucosa Neck: supple, symmetric, no thyromegaly Heart: RRR, no murmur, no gallops, no rubs Respiratory: CTAB, no wheezes, no rales, no ronchi Gastrointestinal: soft, non-tender, non-distended, normal bowel sounds Hosp A/P (1) Abdominal pain Code(s): R10.9 - UNSPECIFIED ABDOMINAL PAIN Status: Acute Qualifiers: Abdominal location: upper abdomen, unspecified Qualified Code(s): R10.10 - Upper abdominal pain, unspecified - Plan still has abd pain with colic. Increasing wbc, no cx results seen, cardiac stress test results pending ruq usg to r/o cholecystitis, CT abd showed liver and gall bladder to be normal morphine prn, protonix prn, nitropaste q6h d/w informally over phone, he will be on the look out for usg findings, will consult if usg is +ve. CT abd shows no ac findings including obstr uropathy will also add lidocaine tts for thoracolumbar spine issues unlikely to be cause of current pain.
--- NOTE | 2019-09-19 13:47 | NM ---
Radionucleotide stress and rest myocardial perfusion scan with CT attenuation correction and SPECT im aging Left ventricular wall motion evaluation and ejection fraction HISTORY: Chest pain. FINDINGS: Adenosine protocol. There is homogeneous uptake of radiotracer throughout the left ventricu lar myocardium. No focal perfusion defect or reversibility. Some diaphragmatic attenuation noted QGS analysis of gated SPECT images shows no focal wall motion abnormalities. Ejection fraction calcul ated at 76%. IMPRESSION : Normal exam. Normal LVEF.
[2019-09-19] MEDS: Metoprolol Tartrate 25 MG TAB PO SCH (14:18)
[2019-09-19] MEDS ORDERED: Polyethylene Glycol 3350 17 GM Packet PO PRN (14:30)
[2019-09-19 16:53] VITALS: BP 144/83; TEMP 98.4
[2019-09-19] MEDS ORDERED: Lidocaine Patch Removal TOP SCH (21:00)
== END 2019-09-19 19:05 | disposition home or self-care (01) ==
LOC: ERS 07:25 → 2NO 08:41
PROVIDERS: ADMIT Internal Medicine; ATTEND Internal Medicine
DX: R10.84 Generalized abdominal pain (principal); R07.2 Precordial pain; E11.9 Type 2 diabetes mellitus without complications; I10 Essential (primary) hypertension; K40.90 Unilateral inguinal hernia, without obstruction or gangrene, not specified as recurrent; M48.04 Spinal stenosis, thoracic region; M48.061 Spinal stenosis, lumbar region without neurogenic claudication; E88.89 Other specified metabolic disorders; E66.9 Obesity, unspecified; Z68.37 Body mass index [BMI] 37.0-37.9, adult; Z88.0 Allergy status to penicillin; Z91.14 Patient's other noncompliance with medication regimen
CPT/HCPCS: 36415; 36416; 71045; 74177; 76705; 78452; 80048; 80053; 80061; 80306; 80307; 83690; 83880; 84484; 85025; 93005; 93017; 96361; 96372; 96374; 96375; 96376; A9500; C9113; G0378; J0153; J1650; J2270; J2405; Q9967